=== PATIENT | female | born 1960 | race Caucasian/White ===

== ENCOUNTER 2019-09-13 11:34 | Day surgery (SDC) | payer OTHER ==
[~2019-09-13] VITALS: Ht 167.6 cm; Wt 54.6 kg
--- NOTE | 2019-09-13 12:23 | NUR ---
History, Chart, Medications and Allergies reviewed before start of procedure. Patient confirms NPO status and agrees with scheduled EGD procedure. Patient States Post-Procedure ride home has been arranged with her friend, Andrew.
[2019-09-13] MEDS ORDERED: ALBU3IS INH (12:28)
[2019-09-13] MEDS ORDERED: TIOT18 INH (12:29)
[2019-09-13] MEDS ORDERED: AMLODIPINE-BEN1 EAC1 PO (12:31)
[2019-09-13] MEDS ORDERED: DICLOFENAC SOD100 G1 TOP (12:32)
[2019-09-13] MEDS ORDERED: Nicotine Patch1 EAC5 TOP (12:33)
[2019-09-13] MEDS ORDERED: Flexeril5 MG PO (12:34)
[2019-09-13] MEDS ORDERED: OMEP20ER PO (12:35)
--- NOTE | 2019-09-13 13:18 | NUR ---
09/13/19 1318 Eddie Coleman History, Chart, Medications and Allergies reviewed before start of procedure.MONITOR INTACT WITH CONTINUOUS PULSE OXIMETRY AND INTERMITTENT BP.3-LEAD EKG REVIEWED WITH PHYSICIAN PRIOR TO START OF PROCEDURE.O2 VIA N/C INTACT THROUGHOUT SEDATION/PROCEDURE. PATIENT DETERMINED TO BE ASA APPROPRIATE FOR PROPOFOL SEDATION PRIOR TO START OF PROCEDURE BY DR. ACEVES.
--- NOTE | 2019-09-13 13:48 | NUR ---
RECIEVED REPORT FROM YEISON REYES RN VSS PATIENT AWAKE.
--- NOTE | 2019-09-13 14:44 | NUR ---
PATIENT ASKING FOR LAB DRAW ORDER RECIEVED FROM DOCTOR TO DRAW A HEPATITIS PANEL ORDER PLACED AND DRAWN FROM IV, PLACED IN TUBES AND SENT TO LAB.
--- NOTE | 2019-09-13 14:46 | NUR ---
Discharge instructions reviewed with patient. Patient verbalizes understanding. Copy given to patient to take home. Patient States Post-Procedure ride home has been arranged. Discharged via wheelchair to private car for ride home.
[2019-09-15 01:06] LABS: HBSAG SCREEN Negative (Negative); HEP A AB, IGM Negative (Negative); HEP B CORE AB, IGM Negative (Negative); HEP C VIRUS AB >11.0 (0.0-0.9)
== END 2019-09-13 23:02 | disposition home or self-care (01) ==
LOC: ORSCMMR 11:34 → ORD 13:00 → ORSCMMR 13:00
PROVIDERS: Student in an Organized Health Care Education/Training Program
PROC: 0DB98ZX Excision of Duodenum, Via Natural or Artificial Opening Endoscopic, Diagnostic (ICD-10-PCS; principal; 2019-09-13 13:00)
PROC: 0DB48ZX Excision of Esophagogastric Junction, Via Natural or Artificial Opening Endoscopic, Diagnostic (ICD-10-PCS; principal; 2019-09-13 13:00)
PROC: 0DB58ZX Excision of Esophagus, Via Natural or Artificial Opening Endoscopic, Diagnostic (ICD-10-PCS; principal; 2019-09-13 13:00)
PROC: 0DB78ZX Excision of Stomach, Pylorus, Via Natural or Artificial Opening Endoscopic, Diagnostic (ICD-10-PCS; principal; 2019-09-13 13:00)
DX: K21.0 Gastro-esophageal reflux disease with esophagitis (principal); R10.13 Epigastric pain; K29.70 Gastritis, unspecified, without bleeding; K22.2 Esophageal obstruction; K26.9 Duodenal ulcer, unspecified as acute or chronic, without hemorrhage or perforation; K44.9 Diaphragmatic hernia without obstruction or gangrene; I10 Essential (primary) hypertension; B19.20 Unspecified viral hepatitis C without hepatic coma; F17.210 Nicotine dependence, cigarettes, uncomplicated; Z79.899 Other long term (current) drug therapy
CPT/HCPCS: 80074; 88305; 88342; J2001; J2250; J2704; J7120

== ENCOUNTER → 2019-11-05 | Outpatient (CLI) | payer OTHER ==
[~2019-11-05] MED LIST: ALBU3IS INH; AMLODIPINE-BEN1 EAC1 PO; DICLOFENAC SOD100 G1 TOP; Flexeril5 MG PO; Nicotine Patch1 EAC5 TOP; OMEP20ER PO; TIOT18 INH
[2019-11-06 14:23] LABS: Stool Occult Bld Immuno 1 Negative (NEGATIVE)
== END | disposition home or self-care (01) ==
LOC: LAB 11:00 → LAB SHORT 11:00
PROVIDERS: Nurse Practitioner Family
DX: Z12.11 Encounter for screening for malignant neoplasm of colon (principal)
CPT/HCPCS: G0328

== ENCOUNTER 2024-01-14 09:27 | Inpatient (IN) | payer OTHER ==
[~2024-01-14] VITALS: Ht 160 cm; Wt 75.0 kg
[2024-01-14] MEDS ORDERED: Ipratropium/Albuterol SulF 2.5-0.5MG/3 ML Amp INH SCH (10:15)
[2024-01-14 10:16] LABS: BASOPHILS ABSOLUTE AUTO 0.03 K/mm3 (0.00-0.23); BASOPHILS PERCENT AUTO 0 % (0-2); EOSINOPHILS ABSOLUTE AUTO 0.03 K/mm3 (0.00-0.68); EOSINOPHILS PERCENT AUTO 0 % (0-6); Hematocrit 38.2 % (33.0-51.0); Hemoglobin 12.6 g/dL (11.5-16.0); IMMATURE GRAN ABSOLUTE AUTO 0.02 K/mm3 (0.00-0.10); IMMATURE GRAN PERCENT AUTO 0 % (0-1); LYMPHOCYTES ABSOLUTE AUTO 1.61 K/mm3 (0.84-5.20); LYMPHOCYTES PERCENT AUTO 17 % (21-46); MONOCYTES ABSOLUTE AUTO 0.49 K/mm3 (0.16-1.47); MONOCYTES PERCENT AUTO 5 % (4-13); Mean Corpuscular HGB 33.8 pg (26.0-34.0); Mean Corpuscular Volume 102 fL (80-100); Mean Platelet Volume 9.1 fL (9.1-12.4); NEUTROPHILS ABSOLUTE AUTO 7.16 K/mm3 (1.96-9.15); NEUTROPHILS PERCENT AUTO 77 % (41-73); Platelet Count 243 K/mm3 (150-400); RDW Standard Deviation 54.6 fL (35.1-46.3); Red Blood Cell Count 3.73 M/mm3 (3.80-5.20); White Blood Cell Count 9.34 K/mm3 (4.00-11.30)
[2024-01-14] MEDS ORDERED: MethylPREDNISolone Sod Succ 125 MG Vial IV ONE (10:20)
[2024-01-14] MEDS ORDERED: Lisinopril 20 MG Tab PO ONE (10:20)
[2024-01-14] MEDS ORDERED: Ketorolac Tromethamine 15mg Vial IV ONE (10:20)
[2024-01-14 10:36] LABS: Albumin, Blood 2.8 g/dL (3.4-5.0); Albumin/Globulin Ratio 0.6 (0.8-1.8); Bilirubin, Total 0.6 mg/dL (0.1-1.0); Bun/Creatinine Ratio 12.3 (12.0-20.0); Calcium, Blood 8.7 mg/dL (8.5-10.1); Creatinine, Blood 1.62 mg/dL (0.40-1.00); Globulin, Blood 4.9 g/dL (2.2-4.0); Potassium, Blood 3.5 mmol/L (3.5-5.5); Total Protein, Blood 7.7 g/dL (6.4-8.2)
[2024-01-14] MEDS ORDERED: ANORO ELLIPTA1 EAC1 INH ×2 (10:39)
[2024-01-14] MEDS ORDERED: Labetalol HCL 5 MG/ML 4ML Injection (Single Dose) IV ONE (11:25)
[2024-01-14] MEDS ORDERED: Nitroglycerin 0.4 MG SUBL SL ONE (11:25)
[2024-01-14] MEDS ORDERED: Furosemide 10 MG/ML 4ML Vial IV ONE (11:30)
[2024-01-14] MEDS ORDERED: Morphine Sulfate 4 MG/1 ML Injection IV ONE (12:25)
[2024-01-14] MEDS ORDERED: NS 500 ML IV SCH (12:40)
[2024-01-14] MEDS ORDERED: Potassium Chloride 20 MEQ TabCR PO ONE (13:00)
[2024-01-14] MEDS ORDERED: Albuterol 2.5 MG/3 ML VIAL INH PRN (14:10)
[2024-01-14] MEDS ORDERED: Acetaminophen 325 MG TABLET PO PRN (14:10)
[2024-01-14] MEDS ORDERED: Morphine Sulfate 4 MG/1 ML Injection IV PRN (14:10)
[2024-01-14] MEDS ORDERED: ChlordiazePOXIDE 25 MG Cap PO PRN ×2 (14:15→16:40)
[2024-01-14] MEDS ORDERED: HydrALAZINE HCl 20 MG / ML 1ML Vial IV PRN (14:20)
[2024-01-14] MEDS ORDERED: Nitroglycerin 0.4 MG SUBL SL PRN (14:20)
[2024-01-14] MEDS ORDERED: CefTRIAXone Sodium 1,000 MG in NS 100 ML IV SCH (14:30)
[2024-01-14] MEDS ORDERED: Azithromycin 250 MG Tab PO SCH (15:00)
[2024-01-14] MEDS ORDERED: Thiamine HCl 100 MG Tab PO SCH (15:00)
[2024-01-14] MEDS ORDERED: Folic Acid 1 MG TAB PO SCH (15:00)
[2024-01-14] MEDS ORDERED: Enoxaparin 80 MG/0.8 ML SYR SC SCH (16:00)
[2024-01-14 16:01] VITALS: BP 164/140
[2024-01-14 16:13] VITALS: BP 198/138
--- NOTE | 2024-01-14 16:20 | NUR ---
ARRIVAL TO PCU patient arrived to pcu at 1535. transferd to pcu bed with minimal assistance walking. blood pressure elevated and medicated per emar. patient educated on possiblities of getting a headache as blood pressure lowers. patient verbalized understanding and of minimal headache currently rated at 2. tele sinus rhythm 92. spo2 >90% on room air. patient is alert and oriented x4. perrla. patient is a daily drinker and drinks rum, about 4 shots in soda daily. last drink yesterday. patient report smoking a quater of a pack daily, called md campa for a nicotine patch. patient reports having schizopernia, depression, hallucinations seeing faces and sees people and talks to them. patient states "they come to me. i dont seek them out". this rn educated on alcohol withdrawal and what that looks like and feels like. patient verbalized understanding and said she would be able to tell the differences from her normal halluncinations and not normal halluncinations. ciwa is 3 currently. patient has flight of ideas. patient has scattered bruising and scratches throughout body. patieint had dentures but only uppers with her. patient has glasses with her. see admit shift assessment for further details. patient home med rec is complete. patient states she has other prescribed meds but does not take them or know what they are. only takes her inhalers. echo at bedside currently. plan of care is up to date
[2024-01-14 16:30] VITALS: BP 169/101
[2024-01-14] MEDS ORDERED: Nicotine 14 MG PATCH TOP SCH (16:35)
[2024-01-14] MEDS ORDERED: LORazepam 2 MG/ML 1ML Injection IV PRN ×2 (16:40)
[2024-01-14] MEDS ORDERED: Enoxaparin 40 MG/0.4 ML SYR SC SCH (17:00)
[2024-01-14] MEDS ORDERED: Bumetanide 0.25 MG/ML 10ML Vial IV ONE ×2 (17:25→17:35)
--- NOTE | 2024-01-14 18:21 | NUR ---
shift summary no acute changes since previous note. blood pressure remains hypertensive, md campa aware of this and of blood pressure after PRN medication given. plan remains up to date.
[2024-01-14 19:46] VITALS: BP 177/107
[2024-01-14 20:37] VITALS: BP 164/112
[2024-01-14] MEDS ORDERED: Sennosides 8.6 MG Tab PO SCH (21:00)
[2024-01-14] MEDS ORDERED: Lactobacil 2-S.Thermo-Bifido 1 1 Cap PO SCH (21:00)
[2024-01-14] MEDS ORDERED: Metoprolol Tartrate 25 MG Tab PO SCH (21:00)
[2024-01-14] MEDS ORDERED: Docusate Sodium 100 MG Cap PO SCH (21:00)
[2024-01-14 23:34] VITALS: BP 132/100
[2024-01-15 02:14] VITALS: BP 150/111
[2024-01-15 03:49] VITALS: BP 150/109
--- NOTE | 2024-01-15 04:52 | NUR ---
SHIFT SUMMARY THIS RN ASSUMED CARE OF PATIENT AT 1900. NO ACUTE CHANGES OVERNIGHT. PT A&O X4. ABLE TO MAKE NEEDS KNOWN. BASELINE SCHIZOPHRENIA WITH HALLUCINATION. CIWA PROTOCOL IN PLACE. CIWA 4-11 DURING THIS SHIFT. MEDICATED WITH PO LIBRIUM X2. PT WITH REPORTS OF SHOULDER PAIN AND COUGHING DURING THIS SHIFT. MEDICATED PER EMAR FOR PAIN. UP TO BSC WITH SBA. BP STABLE. SR WITH HR 80'S. ON 2L VIA NC WITH SPO2 >92%. DYSPNEA WITH EXERTION. BED IN LOWEST POSITION AND CALL LIGHT WITHIN REACH. THIS RN WILL REPORT TO ONCOMING DAYSHIFT RN.
[2024-01-15 05:25] LABS: BASOPHILS PERCENT AUTO 0 % (0-2); EOSINOPHILS PERCENT AUTO 0 % (0-6); Hematocrit 38.5 % (33.0-51.0); Hemoglobin 12.6 g/dL (11.5-16.0); IMMATURE GRAN ABSOLUTE AUTO 0.03 K/mm3 (0.00-0.10); IMMATURE GRAN PERCENT AUTO 0 % (0-1); LYMPHOCYTES ABSOLUTE AUTO 1.04 K/mm3 (0.84-5.20); LYMPHOCYTES PERCENT AUTO 15 % (21-46); MONOCYTES ABSOLUTE AUTO 0.21 K/mm3 (0.16-1.47); MONOCYTES PERCENT AUTO 3 % (4-13); Mean Corpuscular HGB 33.6 pg (26.0-34.0); Mean Corpuscular HGB Conc 32.7 g/dL (31.5-36.5); Mean Corpuscular Volume 103 fL (80-100); Mean Platelet Volume 9.7 fL (9.1-12.4); NEUTROPHILS ABSOLUTE AUTO 5.51 K/mm3 (1.96-9.15); NEUTROPHILS PERCENT AUTO 81 % (41-73); NRBC ABSOLUTE 0.05 K/mm3 (0.00-0.02); NRBC Auto 0.7 /100 WBC (0.0-0.2); Platelet Count 241 K/mm3 (150-400); RDW Coefficient Variation 15.4 % (11.7-14.2); RDW Standard Deviation 56.1 fL (35.1-46.3); Red Blood Cell Count 3.75 M/mm3 (3.80-5.20); White Blood Cell Count 6.79 K/mm3 (4.00-11.30)
[2024-01-15 05:50] LABS: Calcium, Blood 8.7 mg/dL (8.5-10.1); Creatinine, Blood 1.94 mg/dL (0.40-1.00); Potassium, Blood 4.2 mmol/L (3.5-5.5)
[2024-01-15 07:47] VITALS: BP 145/113
[2024-01-15] MEDS ORDERED: Mometasone/Formoterol MDI 200/5 mcg 13 GM INH SCH (08:10)
[2024-01-15] MEDS ORDERED: HydrALAZINE HCl 25 MG Tab PO SCH (09:00)
[2024-01-15] MEDS ORDERED: Isosorbide Mononitrate 30 MG TABCR PO SCH (09:00)
[2024-01-15] MEDS ORDERED: MethylPREDNISolone Sod Succ 125 MG Vial IV SCH (09:00)
[2024-01-15] MEDS ORDERED: Furosemide 10 MG/ML 4ML Vial IV SCH (09:00)
[2024-01-15] MEDS ORDERED: Enoxaparin 30 MG/0.3 ML SYR SC SCH (09:00)
[2024-01-15] MEDS ORDERED: Furosemide 20 MG Tab PO SCH (09:00)
[2024-01-15] MEDS ORDERED: Enoxaparin 40 MG/0.4 ML SYR SC SCH (09:00)
[2024-01-15] MEDS ORDERED: TraMADol HCl 50 MG Tab PO PRN (09:50)
[2024-01-15] MEDS ORDERED: HydrOXYzine Pamoate 25 MG Cap PO PRN (09:50)
--- NOTE | 2024-01-15 09:51 | NUR ---
am note this rn assumed care at 0700. vital signs stable. tele sinus rhythm. spo2 >90% on room air. patient is alert and oriented x4. neuro is intact. patient baseline has hallunciations that come and goes. ciwa is 3 this morning. denies pain or chest pain/pressure. patient still becomes short of breath with exertion, but states it is improving and " can breath better". patient has breathing treatments from respiratory therapist. lung sounds bilateral dim coase expriatory wheezes. see shift assessment for further detials. md campa in to see patient this am. discussed plan of care. patient plan of care remains up to date.
[2024-01-15 11:18] VITALS: BP 132/102
[2024-01-15 15:37] VITALS: BP 130/88
--- NOTE | 2024-01-15 17:31 | NUR ---
SHIFT SUMMARY patient neuro remains unchaged. vitals stable. blood pressure improving. ciwa 8 and medicated. no acute changes this shift. plan remains up to date.
[2024-01-15 19:34] VITALS: BP 142/104
[2024-01-16] VITALS (7 sets, daily range): BP systolic 121–152; BP diastolic 86–111
--- NOTE | 2024-01-16 04:48 | NUR ---
SHIFT SUMMARY THIS RN ASSUMED CARE OF PATIENT AT 1900. NO ACUTE EVENTS OVERNIGHT. PT A&O X4. ABLE TO MAKE NEEDS KNOWN. CIWA NEGATIVE DURING THIS SHIFT. PT REPORTED BEING TIRED AND WAS UNABLE TO SLEEP MOST OF THIS SHIFT. VSS. AMBULATING TO BSC WITH SBA. BED IN LOWEST POSITION AND CALL LIGHT WITHIN REACH. THIS RN WILL REPORT TO [facility] RN.
--- NOTE | 2024-01-16 09:37 | NUR ---
AM NOTE: THIS RN ASSUMED CARE OF PT AT APPROX 0700. PT ALERT, ORIENTED X4. REPORTING AN INCREASE IN HALLUCINATIONS THIS AM; PT STATES "I ALWAYS SEE PEOPLE BUT THEY'RE TALKING TO ME THIS MORNING WHICH NEVER HAPPENS." CIWA 9, MEDICATED PER ORDERS. VSS. HR 60-80'S, SINUS ON TELE. BP STABLE, DENIES CHEST PAIN/PRESSURE. SPO2 >90% ON RA-2L NC. AFEBRILE. UP TO BSC THIS AM W/ 1P ASSIST. PT REFUSED BREAKFAST, REQUESTED TO BE LEFT ALONE TO REST. SLEEPING AT THIS TIME. NO OTHER NEEDS, CALL LIGHT IN REACH.
--- NOTE | 2024-01-16 15:41 | NUR ---
END OF SHIFT NOTE: PT LETHARGIC THIS AFTERNOON. CIWA UP TO 13, MEDICATED PER EMAR. SEE ALCOHOL WITHDRAWAL ASSESSMENTS. VSS. HR 60-70'S, SINUS ON TELE. SBP 120-140'S, DENIES CHEST PAIN/PRESSURE. SPO2 >90% ON 2L WHILE LETHARGIC. PUREWICK IN PLACE PER PT REQUEST. REPOSITIONING INDEPENDENTLY IN BED. MINIMAL PO INTAKE T/O SHIFT. NO OTHER NEEDS AT THIS TIME. CALL LIGHT IN REACH. REPORT TO FORREST RN TO ASSUME CARE FOR REMAINDER OF DAY SHIFT.
--- NOTE | 2024-01-16 16:10 | NUR ---
THIS RN TO ASSUME CARE AT 1600
[2024-01-17 04:06] VITALS: BP 140/105
--- NOTE | 2024-01-17 04:41 | NUR ---
SHIFT SUMMARY THIS RN ASSUMED CARE OF PATIENT AT 1900. NO ACUTE EVENTS OVERNIGHT. PT A&O X4. ABLE TO MAKE NEEDS KNOWN. CIWA 8-10, MEDICATED PER EMAR. VSS. ON 2L FOR NOC. 1-2P SBA TO BSC D/T TREMORS. PT WITH BASELINE VISUAL HALLUCINATIONS, DENIES WORSENING WITH WITHDRAWAL. COOPERATIVE WITH CARE. BED IN LOWEST POSITION, BED ALARM ON, CALL LIGHT WITHIN REACH. THIS RN WILL REPORT TO ONCOMING DAYSHIFT RN.
[2024-01-17 04:57] LABS: BASOPHILS ABSOLUTE AUTO 0.01 K/mm3 (0.00-0.23); BASOPHILS PERCENT AUTO 0 % (0-2); EOSINOPHILS PERCENT AUTO 0 % (0-6); Hematocrit 34.7 % (33.0-51.0); Hemoglobin 11.3 g/dL (11.5-16.0); IMMATURE GRAN ABSOLUTE AUTO 0.06 K/mm3 (0.00-0.10); IMMATURE GRAN PERCENT AUTO 1 % (0-1); LYMPHOCYTES ABSOLUTE AUTO 0.76 K/mm3 (0.84-5.20); LYMPHOCYTES PERCENT AUTO 9 % (21-46); MONOCYTES ABSOLUTE AUTO 0.23 K/mm3 (0.16-1.47); MONOCYTES PERCENT AUTO 3 % (4-13); Mean Corpuscular HGB 33.8 pg (26.0-34.0); Mean Corpuscular HGB Conc 32.6 g/dL (31.5-36.5); Mean Corpuscular Volume 104 fL (80-100); Mean Platelet Volume 9.4 fL (9.1-12.4); NEUTROPHILS ABSOLUTE AUTO 6.99 K/mm3 (1.96-9.15); NEUTROPHILS PERCENT AUTO 87 % (41-73); NRBC ABSOLUTE 0.04 K/mm3 (0.00-0.02); NRBC Auto 0.5 /100 WBC (0.0-0.2); Platelet Count 274 K/mm3 (150-400); RDW Coefficient Variation 15.4 % (11.7-14.2); RDW Standard Deviation 56.7 fL (35.1-46.3); Red Blood Cell Count 3.34 M/mm3 (3.80-5.20); White Blood Cell Count 8.05 K/mm3 (4.00-11.30)
[2024-01-17 05:12] LABS: Bun/Creatinine Ratio 32.4 (12.0-20.0); Calcium, Blood 8.3 mg/dL (8.5-10.1); Creatinine, Blood 2.22 mg/dL (0.40-1.00); Potassium, Blood 4.2 mmol/L (3.5-5.5)
[2024-01-17 07:14] VITALS: BP 151/110
[2024-01-17] MEDS ORDERED: NS 1,000 ML IV SCH (11:40)
[2024-01-17] MEDS ORDERED: ChlordiazePOXIDE 25 MG Cap PO PRN (11:40)
--- NOTE | 2024-01-17 12:37 | NUR ---
Assumed care to break primary RN for 30 minute lunch. No adverse events during lunch. Primary RN reassumed care.
[2024-01-17] MEDS ORDERED: HydrALAZINE HCl 50 MG Tab PO SCH (14:00)
[2024-01-17 14:48] VITALS: BP 131/96
--- NOTE | 2024-01-17 17:30 | NUR ---
SHIFT SUMMARY; ASSUMED CARE AT 0700. A/A/OX4. REPORTS HEARING VOICES AT TIMES BUT STATES HAS BEEN ABLE TO HEAR FROM THE SINCE 1 YEARS OLD. SLIGHT TREMOR NOTED LATER IN SHIFT, CIWA'S 0-4. REPOSITIONS SELF IN BED, SBA TO COMMODE. 2L O2 VIA NC. STATUS CHANGED TO MEDICAL TODAY DURING SHIFT. VSS. WILL CONTINUE TO MONITOR AND TREAT UNTIL CHANGE OF SHIFT.
[2024-01-17 19:50] VITALS: BP 149/92
[2024-01-17] MEDS ORDERED: OLANZapine 5 MG Tab PO SCH (21:00)
[2024-01-17] MEDS ORDERED: Metoprolol Tartrate 50 MG Tab PO SCH (21:00)
--- NOTE | 2024-01-18 01:25 | NUR ---
REPORT RECIEVED FROM SASHA (BUSINESS DATABASE ANALYST) AND AWAITING PT T/F TO ROOM 328.
--- NOTE | 2024-01-18 01:50 | NUR ---
PT T/F TO ROOM 328 AT 0140. THIS RN AGREES TO PCU INITIAL SHIFT ASSESSMENT. PT A/OX4 AND THERE'S NO EVIDENCE HALLUCINATIONS AT PRESENT. SHE WAS ORIENTED TO NEW ROOM AND CALL SYSTEM. PT DENIES PAIN AND NEEDS AT PRESENT. WCTM.
[2024-01-18 01:55] VITALS: BP 131/97
[2024-01-18 05:11] LABS: BASOPHILS PERCENT AUTO 0 % (0-2); EOSINOPHILS ABSOLUTE AUTO 0.03 K/mm3 (0.00-0.68); EOSINOPHILS PERCENT AUTO 0 % (0-6); Hematocrit 35.4 % (33.0-51.0); Hemoglobin 11.4 g/dL (11.5-16.0); IMMATURE GRAN ABSOLUTE AUTO 0.05 K/mm3 (0.00-0.10); IMMATURE GRAN PERCENT AUTO 1 % (0-1); LYMPHOCYTES ABSOLUTE AUTO 2.17 K/mm3 (0.84-5.20); LYMPHOCYTES PERCENT AUTO 26 % (21-46); MONOCYTES PERCENT AUTO 7 % (4-13); Mean Corpuscular HGB Conc 32.2 g/dL (31.5-36.5); Mean Corpuscular Volume 106 fL (80-100); Mean Platelet Volume 9.5 fL (9.1-12.4); NEUTROPHILS ABSOLUTE AUTO 5.47 K/mm3 (1.96-9.15); NEUTROPHILS PERCENT AUTO 66 % (41-73); NRBC ABSOLUTE 0.03 K/mm3 (0.00-0.02); NRBC Auto 0.4 /100 WBC (0.0-0.2); Platelet Count 246 K/mm3 (150-400); RDW Coefficient Variation 15.7 % (11.7-14.2); RDW Standard Deviation 58.1 fL (35.1-46.3); Red Blood Cell Count 3.35 M/mm3 (3.80-5.20); White Blood Cell Count 8.32 K/mm3 (4.00-11.30)
--- NOTE | 2024-01-18 05:48 | NUR ---
ASSUMED CARE OF PT WHILE PRIMARY RN ON BREAK. CALL LIGHT WITHIN REACH.
--- NOTE | 2024-01-18 06:18 | NUR ---
SUMMARY: PT A/OX4, CALLS APPROPRIATELY TO SPECIFY NEEDS AND IS PLEASANT AND COOPERATIVE W/CARE. SHE ENDORSES SCHIZOPHRENIA RELATED HALLUCINATIONS AT BASELINE BUT NONE SINCE T/F TO FLOOR. CIWA WAS 0 T/O NOCTE. BED ALARM IS ON FOR POSSIBLE IMPULSIVITY AND SHE'S SBA TO [facility] [place] W/SLIGHTLY UNSTEADY GAIT. SPO2 IS WNL ON 2L O2 VIA NC AND NO S/S RESP DISTRESS OBSERVED. IV ABX BEING RECEIVED PER EMAR FOR PNM. KPAD REMAINS IN PLACE TO SHOULDER AND BACK FOR CHRONIC PAIN AND ULTRAM WAS PROVIDED BY YARD JACKER FOR GOOD AFFECT. NO ACUTE CHANGES, VSS/AFEBRILE. WCTM AND REPORT TO DAY RN.
[2024-01-18 06:21] LABS: Calcium, Blood 8.2 mg/dL (8.5-10.1); Creatinine, Blood 2.08 mg/dL (0.40-1.00); Potassium, Blood 3.9 mmol/L (3.5-5.5)
[2024-01-18 07:34] VITALS: BP 140/109
[2024-01-18] MEDS ORDERED: OLANZapine 5 MG Tab PO SCH (09:00)
[2024-01-18] MEDS ORDERED: NS 1,000 ML IV SCH (10:25)
[2024-01-18] MEDS ORDERED: Lidocaine 4% 1 Patch TOP SCH (10:30)
[2024-01-18 14:08] VITALS: BP 126/92
--- NOTE | 2024-01-18 17:03 | NUR ---
SHIFT SUMMARY- PT HAS BEEN LETHARGIC AND SLEEPING MOST OF THE SHIFT. SHE DID PIVOT TRANSFER TO THE COMMODE SEVERAL TIMES FOR URINE AND ONCE FOR A LARGE BM. PT NEEDED ASSISTANCE WITH [facility] AFTER THE BM, BUT WITH THE URINE SHE WAS ABLE TO BE INDEPENDENT THERE. IVF REDUCED TO 50ML/HR. PT IN BED CALL LIGHT IN REACH NO S&S OF DISTRESS NOTED. SHE IS CURRENTLY SLEEPING AGAIN.
[2024-01-18 19:45] VITALS: BP 146/93
[2024-01-19 03:24] VITALS: BP 132/99
--- NOTE | 2024-01-19 04:48 | NUR ---
SHIFT SUMMARY: Pt is admitted for right lower PNA and is a DNR. is alert and able to make most needs known. ADLs have been 1p to BSC. pain has been manageage with PRN pain management. Power glide to left upper arm in patent with dressing that is CDI. NS is flowing at 50ml. Stated that she had pain at one point in the pelvic area deep inside. This LN was not able to find anything that stood out in an assessment. She was laying on her left side when the pain started and was subsided when laid on her back so she could be assessed. Had no other complaints of pain in that area but the one time.
[2024-01-19 07:21] VITALS: BP 151/103
[2024-01-19 09:15] LABS: Bun/Creatinine Ratio 31.2 (12.0-20.0); Calcium, Blood 7.8 mg/dL (8.5-10.1); Creatinine, Blood 2.05 mg/dL (0.40-1.00); Potassium, Blood 4.3 mmol/L (3.5-5.5)
[2024-01-19] MEDS ORDERED: Acetaminophen325 M1 PO ×2 (12:24)
[2024-01-19] MEDS ORDERED: HYDRA50 PO ×2 (12:25)
[2024-01-19] MEDS ORDERED: FOLI1 PO ×2 (12:25)
[2024-01-19] MEDS ORDERED: DOCU100 PO ×2 (12:25)
[2024-01-19] MEDS ORDERED: Isosorbide Mono30 MG PO ×2 (12:26)
[2024-01-19] MEDS ORDERED: HYDPAM25 PO ×2 (12:26)
[2024-01-19] MEDS ORDERED: Nicoderm Cq1 EAC1 TOP ×2 (12:26)
[2024-01-19] MEDS ORDERED: METO50 PO ×2 (12:26)
[2024-01-19] MEDS ORDERED: VISBIOME 112.51 EACH PO ×2 (12:27)
[2024-01-19] MEDS ORDERED: DOXY100 PO ×2 (12:27)
[2024-01-19] MEDS ORDERED: TRAM50 PO ×2 (12:27)
[2024-01-19] MEDS ORDERED: SPIR25 PO ×2 (12:28)
[2024-01-19] MEDS ORDERED: FURO40 PO ×2 (12:28)
[2024-01-19] MEDS ORDERED: JARDIANCE10 MG PO ×2 (12:35)
--- NOTE | 2024-01-19 14:09 | NUR ---
DISCHARGE PT DISCHARGED AFTER NEW MEDS, FOLLOW UP APPOINTMENTS, AND OTHER INSTRUCTIONS WERE GONE OVER. PT STATES SHE HAS NO FURTHER QUESTIONS AT THIS TIME. BELONGINGS PACKED INTO BACKS AND PT FRIEND PICKED THEM UP. PT THEN WHEELED DOWN TO [facility] FOR TAXI PICKUP.
--- NOTE | 2024-01-19 21:17 | NUR ---
PATIENT CALLED ASKING TO BE VERBALLY GIVEN INFORMATION ON HER PERSCRIPTIONS THAT WERE FAXED TO PHARMACY. VERIFIED IDENTITY, AND READ THEM TO HER, ANSWERED QUESTIONS ABOUT HER MED REC. GAVE INFORMATION TO MY CHARGE NURSE
--- NOTE | 2024-01-19 21:17 | NUR ---
REVIEWED PT'S INFORMATION R/T QUESTIONS ABOUT DISCH MEDS, PT CALLED WITH QUESTIONS
== END 2024-01-19 13:58 | disposition home health service (06) | DRG 871 ==
LOC: ER 09:27 → PCU 14:06 → MEDS 01-18 01:21
PROVIDERS: Emergency Medicine; ADMIT Internal Medicine
DX: A41.9 Sepsis, unspecified organism (principal); I50.43 Acute on chronic combined systolic (congestive) and diastolic (congestive) heart failure; J18.9 Pneumonia, unspecified organism; N17.9 Acute kidney failure, unspecified; F10.239 Alcohol dependence with withdrawal, unspecified; J44.1 Chronic obstructive pulmonary disease with (acute) exacerbation; Z66 Do not resuscitate; I13.0 Hypertensive heart and chronic kidney disease with heart failure and stage 1 through stage 4 chronic kidney disease, or unspecified chronic kidney disease; J44.0 Chronic obstructive pulmonary disease with (acute) lower respiratory infection; R79.1 Abnormal coagulation profile; F25.9 Schizoaffective disorder, unspecified; F17.210 Nicotine dependence, cigarettes, uncomplicated; I95.9 Hypotension, unspecified; N18.30 Chronic kidney disease, stage 3 unspecified; F32.A Depression, unspecified; I73.9 Peripheral vascular disease, unspecified; Z79.51 Long term (current) use of inhaled steroids; Z79.899 Other long term (current) drug therapy; Z98.890 Other specified postprocedural states; Z98.51 Tubal ligation status
CPT/HCPCS: 36415; 71046; 71260; 80048; 80053; 83880; 84484; 85025; 85379; 93005; 93010; 93306; 94640; 94664; 94760; 96374-59; 96375-59; 97162; 97530; 99285-25; A9270; C1751; J0360; J0696; J1650; J1885; J1940; J2060; J2270; J2919; J7030; J7040; Q0177; Q9967

== ENCOUNTER 2024-01-21 20:59 | Emergency (ER) | payer OTHER ==
[~2024-01-21] VITALS: Ht 167.6 cm; Wt 73.0 kg
[~2024-01-21 20:59] MED LIST changes: +ANORO ELLIPTA1 EAC1 INH; +Acetaminophen325 M1 PO; +DOCU100 PO; +DOXY100 PO; +FOLI1 PO; +FURO40 PO; +HYDPAM25 PO; +HYDRA50 PO; +Isosorbide Mono30 MG PO; +JARDIANCE10 MG PO; +METO50 PO; +Nicoderm Cq1 EAC1 TOP; +SPIR25 PO; +TRAM50 PO; +VISBIOME 112.51 EACH PO
[2024-01-21 22:12] LABS: BASOPHILS ABSOLUTE AUTO 0.02 K/mm3 (0.00-0.23); BASOPHILS PERCENT AUTO 0 % (0-2); EOSINOPHILS ABSOLUTE AUTO 0.21 K/mm3 (0.00-0.68); EOSINOPHILS PERCENT AUTO 2 % (0-6); Hematocrit 36.8 % (33.0-51.0); IMMATURE GRAN ABSOLUTE AUTO 0.06 K/mm3 (0.00-0.10); IMMATURE GRAN PERCENT AUTO 1 % (0-1); LYMPHOCYTES ABSOLUTE AUTO 2.05 K/mm3 (0.84-5.20); LYMPHOCYTES PERCENT AUTO 20 % (21-46); MONOCYTES ABSOLUTE AUTO 0.64 K/mm3 (0.16-1.47); MONOCYTES PERCENT AUTO 6 % (4-13); Mean Corpuscular HGB Conc 32.6 g/dL (31.5-36.5); Mean Corpuscular Volume 104 fL (80-100); Mean Platelet Volume 9.1 fL (9.1-12.4); NEUTROPHILS ABSOLUTE AUTO 7.38 K/mm3 (1.96-9.15); NEUTROPHILS PERCENT AUTO 71 % (41-73); Platelet Count 259 K/mm3 (150-400); RDW Coefficient Variation 15.9 % (11.7-14.2); RDW Standard Deviation 59.5 fL (35.1-46.3); Red Blood Cell Count 3.53 M/mm3 (3.80-5.20); White Blood Cell Count 10.36 K/mm3 (4.00-11.30)
[2024-01-21 22:31] LABS: Alanine Aminotransfer (ALT/SGP 18 U/L (12-78); Albumin, Blood 2.8 g/dL (3.4-5.0); Albumin/Globulin Ratio 0.7 (0.8-1.8); Alk Phos 67 U/L (50-136); Anion Gap 10 mmol/L (3-11); Aspartate Aminotrans (AST/SGOT 21 U/L (12-37); Bilirubin, Total 0.3 mg/dL (0.1-1.0); Blood Urea Nitrogen 34 mg/dL (8-24); Bun/Creatinine Ratio 21.7 (12.0-20.0); CO2, Blood 20 mmol/L (21-32); Calcium, Blood 8.4 mg/dL (8.5-10.1); Chloride, Blood 115 mmol/L (98-108); Creatinine, Blood 1.57 mg/dL (0.40-1.00); Ethanol (Alcohol), Blood, Med <3 mg/dL; Glomerular Filtration Rate 37 (60-); Glucose, Blood 120 mg/dL (70-99); Magnesium, Blood 2.1 mg/dL (1.6-2.4); Potassium, Blood 4.3 mmol/L (3.5-5.5); Sodium, Blood 141 mmol/L (136-145); Total Protein, Blood 6.8 g/dL (6.4-8.2)
[2024-01-21] MEDS ORDERED: Furosemide 10 MG/ML 4ML Vial IV ONE (23:45)
[2024-01-22] VITALS: BP 159/99
== END 2024-01-22 00:33 | disposition home or self-care (01) ==
LOC: ER 20:59
PROVIDERS: Emergency Medicine
DX: I13.0 Hypertensive heart and chronic kidney disease with heart failure and stage 1 through stage 4 chronic kidney disease, or unspecified chronic kidney disease (principal); I50.9 Heart failure, unspecified; N18.9 Chronic kidney disease, unspecified; Z79.899 Other long term (current) drug therapy; J44.9 Chronic obstructive pulmonary disease, unspecified; F17.200 Nicotine dependence, unspecified, uncomplicated
CPT/HCPCS: 71046; 80053; 83605; 83735; 83880; 84145; 84484; 85025; 93005; 93010; 96374; 99285-25; J1940

== ENCOUNTER → 2024-01-25 | Outpatient (CLI) | payer OTHER ==
[2024-01-25 19:19] LABS: Albumin, Blood 2.8 g/dL (3.4-5.0); Albumin/Globulin Ratio 0.6 (0.8-1.8); Bilirubin, Total 0.8 mg/dL (0.1-1.0); Bun/Creatinine Ratio 14.4 (12.0-20.0); Calcium, Blood 8.3 mg/dL (8.5-10.1); Creatinine, Blood 1.53 mg/dL (0.40-1.00); Globulin, Blood 4.5 g/dL (2.2-4.0); Potassium, Blood 4.4 mmol/L (3.5-5.5); Total Protein, Blood 7.3 g/dL (6.4-8.2)
== END ==
LOC: LAB 17:46 → LAB SHORT 17:46
PROVIDERS: Family Medicine
DX: I50.23 Acute on chronic systolic (congestive) heart failure (principal); J18.9 Pneumonia, unspecified organism
CPT/HCPCS: 80053

== ENCOUNTER 2024-02-22 12:22 | Emergency (ER) | payer OTHER ==
[~2024-02-22] VITALS: Ht 167.6 cm; Wt 65.3 kg
[2024-02-22 14:23] LABS: BASOPHILS ABSOLUTE AUTO 0.04 K/mm3 (0.00-0.23); BASOPHILS PERCENT AUTO 0 % (0-2); EOSINOPHILS ABSOLUTE AUTO 0.06 K/mm3 (0.00-0.68); EOSINOPHILS PERCENT AUTO 1 % (0-6); Hematocrit 48.2 % (33.0-51.0); Hemoglobin 15.8 g/dL (11.5-16.0); IMMATURE GRAN ABSOLUTE AUTO 0.03 K/mm3 (0.00-0.10); IMMATURE GRAN PERCENT AUTO 0 % (0-1); LYMPHOCYTES ABSOLUTE AUTO 1.58 K/mm3 (0.84-5.20); LYMPHOCYTES PERCENT AUTO 14 % (21-46); MONOCYTES ABSOLUTE AUTO 0.49 K/mm3 (0.16-1.47); MONOCYTES PERCENT AUTO 4 % (4-13); Mean Corpuscular HGB 32.1 pg (26.0-34.0); Mean Corpuscular HGB Conc 32.8 g/dL (31.5-36.5); Mean Corpuscular Volume 98 fL (80-100); Mean Platelet Volume 9.4 fL (9.1-12.4); NEUTROPHILS ABSOLUTE AUTO 9.23 K/mm3 (1.96-9.15); NEUTROPHILS PERCENT AUTO 81 % (41-73); Platelet Count 250 K/mm3 (150-400); RDW Standard Deviation 50.9 fL (35.1-46.3); Red Blood Cell Count 4.92 M/mm3 (3.80-5.20); White Blood Cell Count 11.43 K/mm3 (4.00-11.30)
[2024-02-22] MEDS ORDERED: Ketorolac Tromethamine 30mg Vial IV ONE (14:30)
[2024-02-22] MEDS ORDERED: Acetaminophen 325 MG TABLET PO ONE (14:30)
[2024-02-22] MEDS ORDERED: NS 1,000 ML IV SCH (14:30)
[2024-02-22 14:38] LABS: Albumin/Globulin Ratio 0.8 (0.8-1.8); Bilirubin, Total 0.4 mg/dL (0.1-1.0); Bun/Creatinine Ratio 16.9 (12.0-20.0); Calcium, Blood 9.7 mg/dL (8.5-10.1); Creatinine, Blood 2.31 mg/dL (0.40-1.00); Globulin, Blood 5.2 g/dL (2.2-4.0); Potassium, Blood 4.9 mmol/L (3.5-5.5); Total Protein, Blood 9.2 g/dL (6.4-8.2)
[2024-02-22 15:41] LABS: Influenza A, PCR NEGATIVE (NEGATIVE); Influenza B, PCR NEGATIVE (NEGATIVE); Resp Syncytial Virus, PCR NEGATIVE (NEGATIVE); SARS-Cov-2 (COVID-19) PCR, MMC NEGATIVE (NEGATIVE)
[2024-02-22] MEDS ORDERED: FentaNYL Citrate 50 MCG/ML 2 ML Injection IV ONE (16:25)
[2024-02-22] MEDS ORDERED: AMLO10 PO (17:07)
[2024-02-22] MEDS ORDERED: CILO100 PO (17:09)
[2024-02-22] MEDS ORDERED: DAPAGLIFLOZIN10 MG PO (17:09)
[2024-02-22] MEDS ORDERED: PROZAC2010 PO (17:10)
[2024-02-22] MEDS ORDERED: GABA400 PO (17:12)
[2024-02-22] MEDS ORDERED: K-Dur20 MEQ PO (17:17)
[2024-02-22] MEDS ORDERED: Crestor40 MG PO (17:18)
[2024-02-22] MEDS ORDERED: Prednisone10 MG PO (18:25)
[2024-02-22 18:30] VITALS: BP 147/94
== END 2024-02-22 18:42 | disposition home or self-care (01) ==
LOC: ER 12:22
PROVIDERS: Physician Assistant; Student in an Organized Health Care Education/Training Program
DX: M10.9 Gout, unspecified (principal); I95.9 Hypotension, unspecified; I12.9 Hypertensive chronic kidney disease with stage 1 through stage 4 chronic kidney disease, or unspecified chronic kidney disease; J44.9 Chronic obstructive pulmonary disease, unspecified; N18.9 Chronic kidney disease, unspecified; F17.210 Nicotine dependence, cigarettes, uncomplicated; Z79.899 Other long term (current) drug therapy; Z11.52 Encounter for screening for COVID-19
CPT/HCPCS: 0241U; 20605; 71046; 73110; 80053; 83735; 83880; 84484; 85025; 85651; 86140; 87205; 93005; 93010; 96361-59; 96374-59; 96375-59; 99285-25; A9270; J1885; J3010; J7030

== ENCOUNTER → 2024-03-28 | Outpatient (CLI) | payer OTHER ==
[~2024-03-28] MED LIST changes: +AMLO10 PO; +CILO100 PO; +Crestor40 MG PO; +DAPAGLIFLOZIN10 MG PO; +GABA400 PO; +K-Dur20 MEQ PO; +PROZAC2010 PO; +Prednisone10 MG PO
[2024-03-28 12:40] LABS: BASOPHILS ABSOLUTE AUTO 0.06 K/mm3 (0.00-0.23); BASOPHILS PERCENT AUTO 1 % (0-2); EOSINOPHILS ABSOLUTE AUTO 0.11 K/mm3 (0.00-0.68); EOSINOPHILS PERCENT AUTO 1 % (0-6); Hematocrit 39.6 % (33.0-51.0); IMMATURE GRAN ABSOLUTE AUTO 0.05 K/mm3 (0.00-0.10); IMMATURE GRAN PERCENT AUTO 1 % (0-1); LYMPHOCYTES ABSOLUTE AUTO 1.69 K/mm3 (0.84-5.20); LYMPHOCYTES PERCENT AUTO 17 % (21-46); MONOCYTES ABSOLUTE AUTO 0.83 K/mm3 (0.16-1.47); MONOCYTES PERCENT AUTO 8 % (4-13); Mean Corpuscular HGB 31.7 pg (26.0-34.0); Mean Corpuscular HGB Conc 32.8 g/dL (31.5-36.5); Mean Corpuscular Volume 97 fL (80-100); Mean Platelet Volume 8.8 fL (9.1-12.4); NEUTROPHILS PERCENT AUTO 73 % (41-73); Platelet Count 362 K/mm3 (150-400); RDW Coefficient Variation 14.6 % (11.7-14.2); White Blood Cell Count 10.24 K/mm3 (4.00-11.30)
[2024-03-28 12:55] LABS: Bun/Creatinine Ratio 12.6 (12.0-20.0); Calcium, Blood 8.9 mg/dL (8.5-10.1); Creatinine, Blood 2.31 mg/dL (0.40-1.00); Potassium, Blood 4.9 mmol/L (3.5-5.5)
== END | disposition home or self-care (01) ==
LOC: LAB 12:35 → LAB SHORT 12:35
PROVIDERS: Physician Assistant Medical
DX: M25.432 Effusion, left wrist (principal)
CPT/HCPCS: 80048; 84550; 85025

== ENCOUNTER 2024-04-12 06:35 | Day surgery (SDC) | payer OTHER ==
[~2024-04-12] VITALS: Ht 167.6 cm; Wt 61.7 kg
[2024-04-12] VITALS (11 sets, daily range): BP systolic 111–188; BP diastolic 82–148
[~2024-04-12 06:35] MED LIST changes: +Incruse Ellipta INH
[2024-04-12] MEDS ORDERED: LOTREL 10-40 M1 EACH PO (06:57)
[2024-04-12] MEDS ORDERED: ALBU90OI INH (06:58)
[2024-04-12] MEDS ORDERED: METO25ER PO (07:07)
[2024-04-12] MEDS ORDERED: ENTRESTO 24 MG1 EACH PO (07:07)
[2024-04-12] MEDS ORDERED: Albuterol 2.5 MG/3 ML VIAL ONE (07:22)
[2024-04-12] MEDS ORDERED: propofoL 50 ML IV ONE (07:24)
[2024-04-12] MEDS ORDERED: NS 1,000 ML IV ONE ×2 (07:26→07:37)
[2024-04-12] MEDS ORDERED: Nitroglycerin 2 MG/20 ML BTL ONE (07:26)
[2024-04-12] MEDS ORDERED: NS 500 ML IV ONE (07:26)
[2024-04-12] MEDS ORDERED: Heparin Sodium 1000 Units/ML 10ML MDV ONE ×2 (07:26→08:10)
[2024-04-12] MEDS ORDERED: Vasopressin 20 UNITS/ML 1ML Vial ONE (07:30)
[2024-04-12] MEDS ORDERED: FentaNYL Citrate 50 MCG/ML 2 ML Injection ONE (07:37)
[2024-04-12] MEDS ORDERED: Ondansetron HCl 2 MG / ML 2ML Vial ONE (08:53)
--- NOTE | 2024-04-12 09:05 | NUR ---
[facility]. awakens to verbal stimuli, right and left groin sites soft and nontender, no hematoma, no bleeding. o2 placed, biox 90 to 91 %.
[2024-04-12] MEDS ORDERED: Etomidate 2MG / ML 10ML Vial IV ONE (09:46)
[2024-04-12] MEDS ORDERED: Midazolam HCl 1MG / ML 2ML Vial IV ONE (09:46)
[2024-04-12] MEDS ORDERED: Lidocaine HCl 2% 20 MG/ML 5ML SYR IV ONE (09:46)
[2024-04-12] MEDS ORDERED: Glycopyrrolate 0.2 MG/ML 5ML SYR (1MG Total) IV ONE (09:46)
--- NOTE | 2024-04-12 09:49 | NUR ---
RIGHT FEMORAL GROIN SITE SOFT NON-TENDER WITH NO HEMATOMA,NO PULSTILE BLEEDING AND INTACT DRESSING. CALL LIGHT IN REACH.
--- NOTE | 2024-04-12 09:50 | NUR ---
LEFT FEMORAL GROIN SITE SOFT NON-TENDER WITH NO HEMATOMA, NO PULSATILE BLEEDING AND INTACT DRESSING.
--- NOTE | 2024-04-12 10:30 | NUR ---
hob up, patient responds appropriately to questions. right and left groin remain soft and nontender, no hematoma, no bleeding, dressings D&I
--- NOTE | 2024-04-12 11:53 | NUR ---
DR GOMEZ IN ROOM DISCUSSING PLAN OF CARE. BILATERAL SITES REMAIN C/D/I. NADN. CALL LIGHT WITHIN REACH.
--- NOTE | 2024-04-12 12:45 | NUR ---
PT VERBALIZES UNDERSTANDING WRITTEN INSTRUCTIONS. PT DENIES QUESTIONS OR CONCERNS. PT IV DC'D. CATH INTACT. PRESSURE DSG APPLIED. PT DC TO HOME VIA WC BY FRIEND
== END 2024-04-12 12:45 | disposition home or self-care (01) ==
LOC: MHTC 06:35
DX: I73.9 Peripheral vascular disease, unspecified (principal); I13.0 Hypertensive heart and chronic kidney disease with heart failure and stage 1 through stage 4 chronic kidney disease, or unspecified chronic kidney disease; I50.20 Unspecified systolic (congestive) heart failure; N18.32 Chronic kidney disease, stage 3b; I87.2 Venous insufficiency (chronic) (peripheral); F17.210 Nicotine dependence, cigarettes, uncomplicated; Z79.899 Other long term (current) drug therapy
CPT/HCPCS: 36245; 75710; 75716; 76937; C1769; C1887; C1894; J1644; J2001; J2250; J2405; J2704; J3010; J7030; J7050; Q9967

== ENCOUNTER 2024-05-20 06:49 | Day surgery (SDC) | payer OTHER ==
[~2024-05-20] VITALS: Ht 167.6 cm; Wt 62.0 kg
[~2024-05-20 06:49] MED LIST changes: +ALBU90OI INH; +ENTRESTO 24 MG1 EACH PO; +LOTREL 10-40 M1 EACH PO; +METO25ER PO
[2024-05-20] MEDS ORDERED: Heparin Sodium 1000 Units/ML 10ML MDV ONE (06:58)
[2024-05-20] MEDS ORDERED: NS 500 ML IV ONE ×2 (06:58→09:35)
[2024-05-20] MEDS ORDERED: NS 1,000 ML IV ONE (06:59)
[2024-05-20] MEDS ORDERED: propofoL 50 ML IV ONE (07:03)
[2024-05-20] MEDS ORDERED: Lactated Ringer's 1,000 ML IV ONE (07:03)
[2024-05-20] MEDS ORDERED: Lidocaine HCl 2% 20 ML MDV ONE (07:08)
[2024-05-20] MEDS ORDERED: Dexmedetomidine HCL 200 MCG / 2 ML ONE (07:09)
[2024-05-20] MEDS ORDERED: propofoL 100 ML IV ONE (07:10)
[2024-05-20 07:42] VITALS: BP 134/108
[2024-05-20] MEDS ORDERED: Nitroglycerin 2 MG/20 ML BTL ONE (08:02)
[2024-05-20] MEDS ORDERED: Verapamil HCL 2.5 MG/ML 2ML Injection ONE (08:02)
[2024-05-20] MEDS ORDERED: EpiNEPhrine 1 MG/1 ML 1ML Vial ONE (08:31)
--- NOTE | 2024-05-20 09:40 | NUR ---
patient returned to [facility], report given by anasthesiologist. right groin site soft and nontender, no hematoma or bleeding
[2024-05-20] MEDS ORDERED: Phenylephrine HCl 100 MCG/ML-NS 10MLSYR (1MG/10ML) ONE (09:41)
--- NOTE | 2024-05-20 09:45 | NUR ---
o2 placed at 2L/nc for sat of 89
--- NOTE | 2024-05-20 09:54 | NUR ---
200 mcg given by Kamla ALEGRIA for low bp with good results patient in coversation
[2024-05-20] MEDS ORDERED: CLOP75 PO (10:16)
[2024-05-20 11:10] VITALS: BP 108/73
[2024-05-20 11:20] VITALS: BP 117/79
[2024-05-20 11:30] VITALS: BP 94/83
[2024-05-20 11:33] VITALS: BP 126/91
[2024-05-20 11:40] VITALS: BP 124/97
[2024-05-20] MEDS ORDERED: Phenylephrine HCl 100 MCG/ML-NS 10MLSYR (1MG/10ML) IV ONE (11:49)
[2024-05-20] MEDS ORDERED: ePHEDrine Sulfate 50 MG/ML 1ML Injection IV ONE (11:49)
--- NOTE | 2024-05-20 12:00 | NUR ---
PATIENT DRESSED AND SITTING IN CHAIR, PATIENT VERBALIZED UNDERSTANDING OF DISCHARGE INSTRUCTIONS AND PRECAUTIOS, NO FURTHER QUESTIONS, RIGHT GROIN SITE SOFT, NO HEMATOMA, NO BLEEDING, DRESSING D&I. IV SITE DCED WITH CATHETER INTACT. FRIEND MOHSEN HERE TO DRIVE PATIENT HOME. DISCHARGE VOLUNTEER, WITH WHEEL CAHIR TO TRANSPORT PATIENT TO WAITING CAR.
== END 2024-05-20 14:55 | disposition home or self-care (01) ==
LOC: MHTC 06:49
DX: I74.5 Embolism and thrombosis of iliac artery (principal); I74.3 Embolism and thrombosis of arteries of the lower extremities; I73.9 Peripheral vascular disease, unspecified; I87.2 Venous insufficiency (chronic) (peripheral); I13.0 Hypertensive heart and chronic kidney disease with heart failure and stage 1 through stage 4 chronic kidney disease, or unspecified chronic kidney disease; I50.20 Unspecified systolic (congestive) heart failure; N18.30 Chronic kidney disease, stage 3 unspecified; F43.10 Post-traumatic stress disorder, unspecified; F17.210 Nicotine dependence, cigarettes, uncomplicated; Z79.899 Other long term (current) drug therapy
CPT/HCPCS: 37221; 37222; 75625; 75716; 76937; 93005; 93010; C1725; C1760; C1769; C1876; C1887; C1894; J0171; J1644; J2371; J2704; J7030; J7040; J7050; J7120; Q9967

== ENCOUNTER 2024-08-29 12:08 | Inpatient (IN) | payer OTHER ==
[~2024-08-29] VITALS: Ht 167.6 cm; Wt 67.4 kg
[~2024-08-29 12:08] MED LIST changes: +CLOP75 PO; +HYDROCODONE-AC1 EA19 PO; +TRAZ50 PO
[2024-08-29 13:20] LABS: BASOPHILS ABSOLUTE AUTO 0.06 K/mm3 (0.00-0.23); BASOPHILS PERCENT AUTO 1 % (0-2); EOSINOPHILS ABSOLUTE AUTO 0.04 K/mm3 (0.00-0.68); EOSINOPHILS PERCENT AUTO 0 % (0-6); Hematocrit 34.3 % (33.0-51.0); Hemoglobin 10.6 g/dL (11.5-16.0); IMMATURE GRAN ABSOLUTE AUTO 0.04 K/mm3 (0.00-0.10); IMMATURE GRAN PERCENT AUTO 0 % (0-1); LYMPHOCYTES ABSOLUTE AUTO 2.11 K/mm3 (0.84-5.20); LYMPHOCYTES PERCENT AUTO 18 % (21-46); MONOCYTES ABSOLUTE AUTO 0.69 K/mm3 (0.16-1.47); MONOCYTES PERCENT AUTO 6 % (4-13); Mean Corpuscular HGB 31.8 pg (26.0-34.0); Mean Corpuscular HGB Conc 30.9 g/dL (31.5-36.5); Mean Corpuscular Volume 103 fL (80-100); Mean Platelet Volume 9.7 fL (9.1-12.4); NEUTROPHILS ABSOLUTE AUTO 8.62 K/mm3 (1.96-9.15); NEUTROPHILS PERCENT AUTO 75 % (41-73); NRBC ABSOLUTE 0.02 K/mm3 (0.00-0.02); NRBC Auto 0.2 /100 WBC (0.0-0.2); Platelet Count 234 K/mm3 (150-400); RDW Standard Deviation 55.5 fL (35.1-46.3); Red Blood Cell Count 3.33 M/mm3 (3.80-5.20); White Blood Cell Count 11.56 K/mm3 (4.00-11.30)
[2024-08-29 13:29] LABS: Albumin, Blood 2.8 g/dL (3.4-5.0); Albumin/Globulin Ratio 0.6 (0.8-1.8); Bilirubin, Total 0.4 mg/dL (0.1-1.0); Bun/Creatinine Ratio 13.1 (12.0-20.0); Calcium, Blood 8.6 mg/dL (8.5-10.1); Creatinine, Blood 1.45 mg/dL (0.40-1.00); Globulin, Blood 4.5 g/dL (2.2-4.0); Potassium, Blood 4.3 mmol/L (3.5-5.5); Total Protein, Blood 7.3 g/dL (6.4-8.2)
[2024-08-29] MEDS ORDERED: Ondansetron HCl 2 MG / ML 2ML Vial IV ONE (14:50)
[2024-08-29] MEDS ORDERED: Furosemide 10 MG/ML 4ML Vial IV ONE (14:50)
[2024-08-29] MEDS ORDERED: FentaNYL Citrate 50 MCG/ML 2 ML Injection IV ONE (14:50)
[2024-08-29] MEDS ORDERED: Aspirin 325 MG Tab PO ONE (15:25)
[2024-08-29] MEDS ORDERED: FLU VACC TS2024-25(6MOS UP)/PF 45 MCG/0.5 ML SYRINGE IM SCH (15:45)
[2024-08-29] MEDS ORDERED: ChlordiazePOXIDE 25 MG Cap PO PRN (15:50)
[2024-08-29] MEDS ORDERED: Ondansetron HCl 2 MG / ML 2ML Vial IV PRN (15:55)
[2024-08-29] MEDS ORDERED: LORazepam 2 MG/ML 1ML Injection IV PRN (15:55)
[2024-08-29] MEDS ORDERED: Ipratropium/Albuterol SulF 2.5-0.5MG/3 ML Amp INH SCH (15:55)
[2024-08-29] MEDS ORDERED: Metoprolol Tartrate 25 MG Tab PO SCH (16:00)
[2024-08-29] MEDS ORDERED: Thiamine HCl 100 MG Tab PO SCH (16:00)
[2024-08-29] MEDS ORDERED: Folic Acid 1 MG TAB PO SCH (16:00)
[2024-08-29] MEDS ORDERED: Albuterol 2.5 MG/3 ML VIAL INH PRN (17:20)
[2024-08-29] MEDS ORDERED: Metoprolol Tartrate 1 MG/ML 5 ML VIAL IV PRN (17:30)
[2024-08-29] MEDS ORDERED: Furosemide 10 MG/ML 4ML Vial IV SCH (18:00)
[2024-08-29 18:26] VITALS: BP 159/110
[2024-08-29] MEDS ORDERED: ENTRESTO 97 MG1 EAC3 PO (18:26)
[2024-08-29] MEDS ORDERED: METOPROLOL SUCC25 MG PO (18:29)
[2024-08-29] MEDS ORDERED: ROSUVASTATIN CA20 MG PO (18:29)
[2024-08-29] MEDS ORDERED: FUROSEMIDE40 MG PO (18:29)
[2024-08-29 19:33] VITALS: BP 155/109
[2024-08-29] MEDS ORDERED: Nicotine 14 MG PATCH TOP SCH (19:41)
[2024-08-29] MEDS ORDERED: Nitroglycerin 0.4 MG SUBL SL ONE (20:20)
[2024-08-29] MEDS ORDERED: Nitroglycerin 0.4 MG SUBL SL PRN (20:25)
[2024-08-29 21:00] VITALS: BP 175/113
[2024-08-29] MEDS ORDERED: Sacubitril/Valsartan 24 MG-26 MG Tab PO SCH (21:00)
[2024-08-29] MEDS ORDERED: MethylPREDNISolone Sod Succ 125 MG Vial IV SCH (21:00)
[2024-08-29 21:15] VITALS: BP 168/105
--- NOTE | 2024-08-29 21:46 | NUR ---
NURSE NOTE PATIENT IS A+O X4, ABLE TO MAKE NEEDS KNOWN. RESPOTIONS SELF IN BED. DAY SHIFT NURSE WAS ALLOWING PT TO AMBULATE IDEPT TO THE BATHROOM, THIS RN REQUESTED PT TO USE BSC AT NIGHT. PT ENDORSES CHEST PAIN TO THE RIGHT SIDE OF CHEST THAT RADIATES TO THE R ARM AND NECK. PT STATES SHE HAS BEEN DEALING WITH THIS PAIN FOR AROUND 4-5 DAYS AND THAT IS WHAT BROUGHT HER TO THE HOSPITAL. RESTIDENT WAS NOTIFIED OF THIS PAIN VIA TELEPHONE AND ORDERED NITRO FOR THE PT (SEE EMAR). PT SO EXPRESSED BEING ANXIOUS AND WAS MEDICATED PER EMAR FOR THIS. B/P REMAINS ELAVATED THIS EVENING AND STABLE AFTER GIVEN NITRO. CALL LIGHT IS IN REACH, BED IN LOWEST POSTION, WILL CONTINUE TO TREAT.
[2024-08-29 23:50] VITALS: BP 182/122
[2024-08-30] VITALS (12 sets, daily range): BP systolic 103–178; BP diastolic 57–121
[2024-08-30] MEDS ORDERED: HydrALAZINE HCl 20 MG / ML 1ML Vial IV PRN (01:30)
--- NOTE | 2024-08-30 04:26 | NUR ---
SHIFT SUMMARY NOC PT IS A+O X4, ABLE TO MAKE NEEDS KNOWN, REPOSTIONS SELF IN BED. IND IN THE ROOM, ABLE TO ASSIT SELF TO BSC. PT HAD ONE INCONTIENT VOID THIS SHIFT. PT TOOK A SHOWER AND HER BED LIEN WAS CHANGED. CIWA NEGATIVE. PT DID HOWEVER AWAKE AGITATED THIS AM AND STATED, "SHE FORGOT WHERE SHE WAS." SHE WAS EASILY REORIENTATED. PT WAS ABLE TO GET SOME SLEEP THIS SHIFT. ON 2 LITERS NC SATTING AT 94% CURRENTLY. TELE SHOWS SINUS AT A RATE OF 85. PT DENIES CHEST PAIN AT THIS TIME. BED IN LOWEST POSTION, CALL LIGHT IN REACH, WILL CONTINUE TO TREAT AND REPORT TO ONCOMING RN.
[2024-08-30 05:14] LABS: BASOPHILS ABSOLUTE AUTO 0.02 K/mm3 (0.00-0.23); BASOPHILS PERCENT AUTO 0 % (0-2); EOSINOPHILS PERCENT AUTO 0 % (0-6); Hematocrit 34.9 % (33.0-51.0); Hemoglobin 10.9 g/dL (11.5-16.0); Mean Corpuscular HGB 32.2 pg (26.0-34.0); Mean Corpuscular HGB Conc 31.2 g/dL (31.5-36.5); Mean Corpuscular Volume 103 fL (80-100); NRBC ABSOLUTE 0.03 K/mm3 (0.00-0.02); NRBC Auto 0.4 /100 WBC (0.0-0.2); Platelet Count 223 K/mm3 (150-400); RDW Standard Deviation 55.9 fL (35.1-46.3); Red Blood Cell Count 3.39 M/mm3 (3.80-5.20); White Blood Cell Count 7.35 K/mm3 (4.00-11.30)
[2024-08-30 05:17] LABS: International Normalized Ratio 1.18; Prothrombin Time Results 12.5 Sec (9.7-11.5)
[2024-08-30 05:19] LABS: IMMATURE GRAN ABSOLUTE AUTO 0.14 K/mm3 (0.00-0.10); IMMATURE GRAN PERCENT AUTO 2 % (0-1); LYMPHOCYTES ABSOLUTE AUTO 0.51 K/mm3 (0.84-5.20); LYMPHOCYTES PERCENT AUTO 7 % (21-46); MONOCYTES ABSOLUTE AUTO 0.07 K/mm3 (0.16-1.47); MONOCYTES PERCENT AUTO 1 % (4-13); NEUTROPHILS ABSOLUTE AUTO 6.61 K/mm3 (1.96-9.15); NEUTROPHILS PERCENT AUTO 90 % (41-73)
[2024-08-30 05:26] LABS: BAND PERCENT MAN 2 % (0-8); BASOPHILS PERCENT MAN 0 % (0-2); EOSINOPHILS PERCENT MAN 0 % (0-6); LYMPHOCYTES ABSOLUTE MAN 0.36 K/mm3 (0.84-5.20); LYMPHOCYTES PERCENT MAN 5 % (21-46); MONOCYTES PERCENT MAN 0 % (4-13); NEUTROPHILS ABSOLUTE MAN 6.98 K/mm3 (1.96-9.15); SEG NEUTROPHILS PERCENT MAN 93 % (41-73); TOTAL CELLS COUNTED 100
[2024-08-30 05:37] LABS: Albumin/Globulin Ratio 0.7 (0.8-1.8); Bilirubin, Total 0.3 mg/dL (0.1-1.0); Bun/Creatinine Ratio 15.2 (12.0-20.0); Calcium, Blood 8.7 mg/dL (8.5-10.1); Creatinine, Blood 1.65 mg/dL (0.40-1.00); Free Thyroxine 1.06 ng/dL (0.70-1.60); Globulin, Blood 4.6 g/dL (2.2-4.0); Potassium, Blood 4.4 mmol/L (3.5-5.5); Thyroid Stimulating Hormone 0.499 uIU/mL (0.360-4.800); Total Protein, Blood 7.6 g/dL (6.4-8.2)
[2024-08-30] MEDS ORDERED: Nicotine 14 MG PATCH TOP SCH (09:00)
[2024-08-30] MEDS ORDERED: Atorvastatin 40 MG Tab PO SCH (09:00)
[2024-08-30] MEDS ORDERED: Clopidogrel Bisulfate 75 MG Tab PO SCH (09:00)
[2024-08-30] MEDS ORDERED: Enoxaparin 40 MG/0.4 ML SYR SC SCH (09:00)
[2024-08-30] MEDS ORDERED: OxyCODONE HCL 5 MG TAB PO PRN ×2 (09:05→16:10)
[2024-08-30] MEDS ORDERED: Gabapentin 100 MG Cap PO SCH (10:00)
[2024-08-30] MEDS ORDERED: Metolazone 2.5 MG Tab PO SCH (10:00)
--- NOTE | 2024-08-30 15:15 | NUR ---
Patient is lying in bed and alert. Patient has much to say about the deaths of her son, grandson and mother (her mother less than 2 yrs ago). She also shares personal stories about some of the horrible events and people that she has overcome and about her spiritual journey. I encouraged self-care, reinforced helpful attitudes and perspectives and provided therapeutic listening and prayer.
[2024-08-30] MEDS ORDERED: Nystatin 100,000 Unit/ML Susp 5 ML UDC SS SCH (17:00)
--- NOTE | 2024-08-30 17:37 | NUR ---
SHIFT SUMMARY PT A&O X4, ANXIOUS AT TIMES, COOPERATIVE TO CARE. HR IN THE 90'S, SINUS RHYTHM. SBP ELEVATED, MEDICATING PER EMAR. DENIES NUMB/TINGLING. O2 >92% ON RA-2L VIA NC, PT DENIES SOB. SHE HAS A HACKING COUGH BUT DENIES COUGHING ANYTHING UP. PT WITH CHEST/BACK/NECK/SHOULDER/LEG PAIN RATING IT A 10/10, PROVIDER AT BEDSIDE TO DISCUSS. PAIN MEDICATIONS UPDATED BY PROVIDER (SEE EMAR). PT REPORTS NO IMPROVEMENT IN PAIN. TRIED HEATING PAD FOR PAIN RELIEF BUT PT REPORTS MINIMAL RELIEF WITH HEATING PAD. CALL PLACED TO PROVIDER TO UPDATE HER THERE WAS NO IMPROVEMENT IN PAIN AND PT STILL REPORTING 10/10 PAIN, FREQUENCY CHANGE FOR PAIN MEDICATION AND MUSCLE RELAXER PLACED BY PROVIDER. PT VERY ANXIOUS, MEDICATED PER EMAR. PT NOW RELAXING IN BED. WILL MONITOR PT AND REPORT TO MIRROR PAINTER RN.
[2024-08-30 19:35] LABS: Influenza A, PCR NEGATIVE (NEGATIVE); Influenza B, PCR NEGATIVE (NEGATIVE); Resp Syncytial Virus, PCR NEGATIVE (NEGATIVE); SARS-Cov-2 (COVID-19) PCR, MMC NEGATIVE (NEGATIVE)
[2024-08-30] MEDS ORDERED: Methocarbamol 500 MG Tab PO SCH (21:00)
[2024-08-30] MEDS ORDERED: Metoprolol Tartrate 50 MG Tab PO SCH (21:00)
--- NOTE | 2024-08-30 21:04 | NUR ---
ASSUMED CARE OF THIS PT AT 1915. PT IS A+O X4 THIS SHIFT, SHE WAS SITTING UP IN BED. R/O FOR COVID PANEL CAME BACK NEGATIVE. PT WAS TAKEN DOWN TO IMAGING VIA WHEEL CHAIR. PT IS A SBA FOR TRANSFERING. WHEN SHE ARRIVED BACK TO HER ROOM SHE ATE DINNER AND TO SLEEP. BED IN LOWEST POSTION, CALL LIGHT IN REACH.
[2024-08-31 03:40] VITALS: BP 156/106
--- NOTE | 2024-08-31 05:08 | NUR ---
SHIFT SUMMARY PT IS A+O X4, ABLE TO MAKE NEEDS KNOWN, REPOSTIONS SELF IN BED. PT WAS ABLE TO GET SOME SLEEP THIS SHIFT. SHE IS AN IDEPENT TRANSFER TO THE [facility] [place], IF GOING IN THE BATHROOM SHE NEEDS ASSTIANCE WITH LINE MANAGMENT. VSS, SBP IN THE 150s, DENIES CHEST PAIN OR PRESSURE. PT ON 2 LITERS NC SATTING AT 93%. PT WILL HOWEVER DESATURATE IF SHE REMOVES NC. BREATHING EVEN AND UNLABORED. PT DENIES PAIN. REMAINS ON TELE SR W/ PVCs. PT CONTINUES TO GOOD OUTPUT AND HAD A BM THIS MORNING. PT DENIES NEEDS AT THIS TIME, BED IN LOWEST POSTION, CALL LIGHT IN REACH. WILL CONTINUE TO TREAT AND REPORT TO ONCOMING RN.
[2024-08-31 05:34] LABS: BASOPHILS PERCENT AUTO 0 % (0-2); EOSINOPHILS PERCENT AUTO 0 % (0-6); Hematocrit 35.2 % (33.0-51.0); Hemoglobin 10.9 g/dL (11.5-16.0); IMMATURE GRAN ABSOLUTE AUTO 0.05 K/mm3 (0.00-0.10); IMMATURE GRAN PERCENT AUTO 1 % (0-1); LYMPHOCYTES ABSOLUTE AUTO 0.67 K/mm3 (0.84-5.20); LYMPHOCYTES PERCENT AUTO 8 % (21-46); MONOCYTES ABSOLUTE AUTO 0.24 K/mm3 (0.16-1.47); MONOCYTES PERCENT AUTO 3 % (4-13); Mean Corpuscular HGB 31.8 pg (26.0-34.0); Mean Corpuscular Volume 103 fL (80-100); Mean Platelet Volume 9.4 fL (9.1-12.4); NEUTROPHILS PERCENT AUTO 88 % (41-73); NRBC ABSOLUTE 0.03 K/mm3 (0.00-0.02); NRBC Auto 0.4 /100 WBC (0.0-0.2); Platelet Count 222 K/mm3 (150-400); RDW Coefficient Variation 15.1 % (11.7-14.2); RDW Standard Deviation 57.3 fL (35.1-46.3); Red Blood Cell Count 3.43 M/mm3 (3.80-5.20); White Blood Cell Count 7.96 K/mm3 (4.00-11.30)
[2024-08-31 06:09] LABS: Bun/Creatinine Ratio 19.2 (12.0-20.0); Creatinine, Blood 1.77 mg/dL (0.40-1.00); Potassium, Blood 4.4 mmol/L (3.5-5.5)
[2024-08-31 07:43] VITALS: BP 153/101
[2024-08-31] MEDS ORDERED: Gabapentin 300 MG Cap PO SCH (09:00)
[2024-08-31] MEDS ORDERED: Gabapentin 100 MG Cap PO SCH (09:00)
[2024-08-31 11:28] VITALS: BP 163/109
[2024-08-31] MEDS ORDERED: ALLO100 PO (11:55)
[2024-08-31] MEDS ORDERED: CLOP75 PO (11:56)
[2024-08-31] MEDS ORDERED: LOTREL 10-40 M1 EACH PO (12:04)
[2024-08-31] MEDS ORDERED: Crestor40 MG PO (12:08)
[2024-08-31] MEDS ORDERED: ENTRESTO 49 MG1 EACH PO (12:09)
[2024-08-31] MEDS ORDERED: TRELEGY ELLIPT1 EACH INH (12:11)
[2024-08-31] MEDS ORDERED: TRELEGY ELLIPT1 EACH (12:12)
[2024-08-31] MEDS ORDERED: FARXIGA10 MG PO (12:14)
[2024-08-31] MEDS ORDERED: GABA300 PO (12:17)
[2024-08-31 15:02] VITALS: BP 150/109
--- NOTE | 2024-08-31 18:26 | NUR ---
SHIFT SUMMARY PT A&O X4. HR IN THE 80'S, SINUS RHYTHM, ELEVATED BP'S, MEDICATING PER EMAR. SHE DENIES NUMB/TINGLING. PT REPORTS CHEST DISCOMFORT FOR THE LAST WEEK, MEDICATING PER EMAR. SHE REPORTS PAIN IN THE BACK/NECK/SHOULDER/LEGS, MEDICATING PER EMAR. PT DIURESING WELL. O2 >92% ON RA. PT REPORTED EPISODE OF SOB THIS AFTERNOON. FAN PLACED AT BEDSIDE AND INCRESED ANGLE OF HOB. PT REPORTED IMPROVMENT IN BREATHING AFTER. BLOOD CULTURES ORDERED THIS AM, PENDING RESULTS. PT RESTING IN BED AT THIS TIME. SHE DENIES ANY QUESTIONS OR CONCERNS, WILL MONITOR PT AND REPORT TO [facility] TECHNICIAN RN.
[2024-08-31 19:19] VITALS: BP 157/110
[2024-08-31] MEDS ORDERED: Sodium Bicarbonate 650 MG Tab PO SCH (21:00)
--- NOTE | 2024-08-31 21:34 | NUR ---
ASSUMED CARE OF THIS PT AT 1900. PT IS A+O X4, ABLE TO MAKE NEEDS KNOWN, REPOSTIONS SELF IN BED. IDEPENT TO THE BSC FOR VOIDING. VSS, SBP IN THE 150s. PT TITRATED OFF OF OXYGEN TODAY AND IS SATTING AT 92% AND ABOVE ON CONTINUE PULSE OX. BREATHING EVEN AND UNLABORED SITTING UP IN BED HOB ELAVATED. PERRLA. PT REQUESTED PAIN MEDICATION DURING ASSESSMENT, MEDICATED PER EMAR WHEN MEDICATION WAS ABLE TO BE GIVEN PER EMAR ORDERS. BED IN LOWEST POSTION FOR SAFETY. CALL LIGHT IN REACH.
[2024-08-31 23:23] VITALS: BP 141/94
[2024-09-01 03:28] VITALS: BP 148/98
[2024-09-01 04:21] LABS: BASOPHILS ABSOLUTE AUTO 0.01 K/mm3 (0.00-0.23); BASOPHILS PERCENT AUTO 0 % (0-2); EOSINOPHILS ABSOLUTE AUTO 0.01 K/mm3 (0.00-0.68); EOSINOPHILS PERCENT AUTO 0 % (0-6); Hematocrit 32.8 % (33.0-51.0); Hemoglobin 10.2 g/dL (11.5-16.0); IMMATURE GRAN ABSOLUTE AUTO 0.05 K/mm3 (0.00-0.10); IMMATURE GRAN PERCENT AUTO 1 % (0-1); LYMPHOCYTES ABSOLUTE AUTO 1.56 K/mm3 (0.84-5.20); LYMPHOCYTES PERCENT AUTO 15 % (21-46); MONOCYTES ABSOLUTE AUTO 0.88 K/mm3 (0.16-1.47); MONOCYTES PERCENT AUTO 8 % (4-13); Mean Corpuscular HGB 31.4 pg (26.0-34.0); Mean Corpuscular HGB Conc 31.1 g/dL (31.5-36.5); Mean Corpuscular Volume 101 fL (80-100); Mean Platelet Volume 9.3 fL (9.1-12.4); NEUTROPHILS ABSOLUTE AUTO 8.18 K/mm3 (1.96-9.15); NEUTROPHILS PERCENT AUTO 77 % (41-73); NRBC ABSOLUTE 0.02 K/mm3 (0.00-0.02); NRBC Auto 0.2 /100 WBC (0.0-0.2); Platelet Count 230 K/mm3 (150-400); RDW Coefficient Variation 14.8 % (11.7-14.2); RDW Standard Deviation 55.4 fL (35.1-46.3); Red Blood Cell Count 3.25 M/mm3 (3.80-5.20); White Blood Cell Count 10.69 K/mm3 (4.00-11.30)
--- NOTE | 2024-09-01 04:58 | NUR ---
SHIFT SUMMARY PT A+O X4, ABLE TO MAKE NEEDS KNOWN, REPOSTIONS SELF IN BED. PT DID WAKE UP CONFUSED ONCE DURING THE NIGHT BUT WAS EASILY REORIENTATED. CIWAs NEGATIVE DURING SHIFT. PT WAS MEDICATED FOR PAIN X2. VSS. PT ON RA AIR WHILE AWAKE, WHILE SLEEPING REQUIRING 2 LITERS VIA NC. TELE SHOWING SINUS ON THE MONITOR RATE OF 87 AT THIS TIME. PT IS SELF TRANSFERS TO THE BSC AND IS A 1 PERSON SBA TO THE BATHROOM. GOOD URINE OUT PUT, HAD BM THIS MORNING. SNACK PROVIDED THIS AM. PT DENIES NEEDS AT THIS TIME. BED IN LOWEST POSTION FOR SAFETY, CALL LIGHT IN REACH. WILL CONTINUE TO TREAT AND REPORT TO ONCOMING RN.
[2024-09-01 05:12] LABS: Albumin, Blood 2.9 g/dL (3.4-5.0); Albumin/Globulin Ratio 0.7 (0.8-1.8); Bilirubin, Total 0.3 mg/dL (0.1-1.0); Bun/Creatinine Ratio 21.3 (12.0-20.0); Calcium, Blood 8.3 mg/dL (8.5-10.1); Creatinine, Blood 2.11 mg/dL (0.40-1.00); Globulin, Blood 4.2 g/dL (2.2-4.0); Potassium, Blood 4.1 mmol/L (3.5-5.5); Total Protein, Blood 7.1 g/dL (6.4-8.2)
[2024-09-01 07:19] VITALS: BP 155/103
[2024-09-01] MEDS ORDERED: Metoprolol Succinate 50 MG TABCR PO SCH (09:00)
[2024-09-01] MEDS ORDERED: PredniSONE 20 MG Tab PO SCH (09:00)
[2024-09-01] MEDS ORDERED: OxyCODONE HCL 5 MG TAB PO PRN (09:45)
--- NOTE | 2024-09-01 11:34 | NUR ---
PT A&O X4, ANXIOUS AT TIMES. PT MEDICAL STATUS WITH NO TELE. DENIES NUMB/TINGLING, SBP ELEVATED, MEDICATING PER EMAR. O2 >92% ON RA-1L, DENIES SOB AT THIS TIME. PT GETS ANXIOUS AT TIMES AND WOB INCREASES. PT DIURESING WELL. SHE REPORTS PAIN OF THE LEGS/CHEST/ARM/SHOULDERS, MEDICATING PER EMAR. PT RESTING IN BED AT THIS TIME. DENIES QUESTIONS OR CONCERNS. REPORT GIVEN TO NURSES ASSUMING CARE OF PT.
--- NOTE | 2024-09-01 12:16 | NUR ---
REPORT RECIEVED FROM REBEL ALEGRIA AT 1100. THIS RN TO ASSUME CARE.
[2024-09-01 16:23] VITALS: BP 178/101
[2024-09-01 16:47] VITALS: BP 156/91
--- NOTE | 2024-09-01 17:52 | NUR ---
SHIFT SUMMARY/ TRANSFER NOTE REPORT CALLED TO [facility] [facility] RN AT 1740. PT TRANSFERED AT 1751 VIA WHEELCHAIR AND ON RA. PT ABLE TO TRANSFER SEOLF TO AND FROM WHEELCHAIR ON HER OWN, TOLERATED WELL. PERSONAL BELONGINGS IN BAGS AND TRANSFERED WITH PT ALONG WITH PT'S CHART. PT A/OX4 AND COOPERATIVE OF CARE. PT ABLE TO EXPRESS NEEDS AND CALLS APPROPIATE. PT INDEPENDENT IN BED AND ROOM, TOLERATED WELL. PT SEEN BY PHYSICAL THERAPY, THERAPY CLEARED PT AND ENCOURAGED PT TO BE UP MORE. PT HYPERTENSIVE, TREATED PER EMAR. OTHER VSS THROUGHOUT SHIFT. PT REPORTED GENERALIZED PAIN DURING SHIFT, TREATED PER EMAR. NO REPORT OF SOB/DYSPNEA THROUGHOUT SHIFT.
--- NOTE | 2024-09-01 18:44 | NUR ---
TRANSFER NOTE/SHIFT SUMMARY PATIENT TRANSFERRED TO ROOM 311 THIS EVENING FROM PCU FOR CHF EXACERBATION. PATIENT A/OX4, ABLE TO MAKE NEEDS KNOWN. PATIENT IRRITABLE BUT COOPERATIVE WITH CARE AND STATES FRUSTRATION WITH PAIN MANAGEMENT REGIMEN. MD AWARE. PATIENT ON ROOM AIR. INDEPENDENT. NO OTHER CONCERNS AT THIS TIME.
[2024-09-01 20:05] VITALS: BP 127/89
--- NOTE | 2024-09-02 02:49 | NUR ---
0100: Pt awoke with excruciating pain in head, unable to describe, too early to administer oxicodone, gave ativan d/t Pt with anxiety also stating she's been in pain, but this nurse medicated Pt for pain at 2030 and then she slept till just then. Pt A&O x4, VS WNL, O2 2L and nebs as ordered, has not asked for prn nebs. Up ad jojo to BR and does save urine as is on strict I&O's, Will check wt in am.
[2024-09-02 07:32] VITALS: BP 176/106
[2024-09-02] MEDS ORDERED: Acetaminophen 500 MG Tab PO PRN ×2 (07:55→12:00)
[2024-09-02 08:33] LABS: Albumin, Blood 2.9 g/dL (3.4-5.0); Albumin/Globulin Ratio 0.8 (0.8-1.8); Bilirubin, Total 0.4 mg/dL (0.1-1.0); Bun/Creatinine Ratio 28.6 (12.0-20.0); Calcium, Blood 8.5 mg/dL (8.5-10.1); Creatinine, Blood 1.96 mg/dL (0.40-1.00); Globulin, Blood 3.8 g/dL (2.2-4.0); Potassium, Blood 3.6 mmol/L (3.5-5.5); Total Protein, Blood 6.7 g/dL (6.4-8.2)
[2024-09-02] MEDS ORDERED: Enoxaparin 30 MG/0.3 ML SYR SC SCH (09:00)
[2024-09-02] MEDS ORDERED: Allopurinol 100 MG Tab PO SCH (09:00)
[2024-09-02] MEDS ORDERED: Sertraline HCl 100 MG Tab PO SCH (09:00)
[2024-09-02] MEDS ORDERED: Furosemide 40 MG Tab PO SCH ×2 (09:00→13:00)
[2024-09-02] MEDS ORDERED: OxyCODONE HCL 5 MG TAB PO PRN (11:30)
[2024-09-02] MEDS ORDERED: Acetaminophen 500 MG Tab PO ONE (12:00)
[2024-09-02] MEDS ORDERED: DULoxetine HCL 60 MG Capsule DR PO SCH (12:00)
[2024-09-02] MEDS ORDERED: PredniSONE 20 MG Tab PO ONE (13:00)
[2024-09-02] MEDS ORDERED: Methocarbamol 500 MG Tab PO SCH (14:00)
[2024-09-02 15:22] VITALS: BP 177/112
--- NOTE | 2024-09-02 16:08 | NUR ---
NO CHANGES IN PT STATUS TODAY. PT HAD SOME C/O PAIN. SEE EMAR FOR DETAILS AND FREQUECY.
[2024-09-02 16:21] VITALS: BP 163/103
[2024-09-02 20:13] VITALS: BP 191/126
[2024-09-02] MEDS ORDERED: Gabapentin 300 MG Cap PO SCH (21:00)
[2024-09-02 21:53] VITALS: BP 136/86
[2024-09-03 02:33] VITALS: BP 161/96
--- NOTE | 2024-09-03 04:24 | NUR ---
SHIFT SUMMARY ADMITTED FOR CHF EXACERBATION. LIMITED CODE. WE ARE DIURESING HER. PLAN IS FOR DC HOME W/HH. 1500 ML FLUID RESTRICTION. STRICT I&O'S. DAILY WEIGHTS. POWERGLIDE IN RUE. ON RA. PAIN AND ANXIETY MEDICATION GIVEN THIS SHIFT. SHE IS INDEPENDENT IN THE ROOM. ON A CARDIAC DIET. PHYSICAL & OCCUPATIONAL THERAPIES ARE ORDERED. A&O X4, ANXIOUS. ELEVATED BP NOTED AT BEGINNING OF SHIFT, MEDICATED PER EMAR.
[2024-09-03 06:17] LABS: BASOPHILS ABSOLUTE AUTO 0.01 K/mm3 (0.00-0.23); BASOPHILS PERCENT AUTO 0 % (0-2); EOSINOPHILS ABSOLUTE AUTO 0.01 K/mm3 (0.00-0.68); EOSINOPHILS PERCENT AUTO 0 % (0-6); Hematocrit 33.7 % (33.0-51.0); Hemoglobin 10.8 g/dL (11.5-16.0); IMMATURE GRAN ABSOLUTE AUTO 0.06 K/mm3 (0.00-0.10); IMMATURE GRAN PERCENT AUTO 1 % (0-1); LYMPHOCYTES ABSOLUTE AUTO 1.63 K/mm3 (0.84-5.20); LYMPHOCYTES PERCENT AUTO 18 % (21-46); MONOCYTES ABSOLUTE AUTO 1.07 K/mm3 (0.16-1.47); MONOCYTES PERCENT AUTO 12 % (4-13); Mean Corpuscular HGB 31.3 pg (26.0-34.0); Mean Corpuscular Volume 98 fL (80-100); Mean Platelet Volume 9.3 fL (9.1-12.4); NEUTROPHILS ABSOLUTE AUTO 6.29 K/mm3 (1.96-9.15); NEUTROPHILS PERCENT AUTO 69 % (41-73); Platelet Count 289 K/mm3 (150-400); RDW Coefficient Variation 14.4 % (11.7-14.2); RDW Standard Deviation 52.1 fL (35.1-46.3); Red Blood Cell Count 3.45 M/mm3 (3.80-5.20); White Blood Cell Count 9.07 K/mm3 (4.00-11.30)
[2024-09-03 06:40] LABS: Albumin, Blood 2.9 g/dL (3.4-5.0); Albumin/Globulin Ratio 0.7 (0.8-1.8); Bilirubin, Total 0.5 mg/dL (0.1-1.0); Bun/Creatinine Ratio 30.2 (12.0-20.0); Calcium, Blood 8.7 mg/dL (8.5-10.1); Creatinine, Blood 1.89 mg/dL (0.40-1.00); Globulin, Blood 3.9 g/dL (2.2-4.0); Potassium, Blood 3.4 mmol/L (3.5-5.5); Total Protein, Blood 6.8 g/dL (6.4-8.2)
[2024-09-03 07:28] VITALS: BP 148/90
[2024-09-03] MEDS ORDERED: Potassium Chloride 20 MEQ TabCR PO ONE (07:45)
[2024-09-03] MEDS ORDERED: Allopurinol 100 MG Tab PO SCH (09:00)
[2024-09-03] MEDS ORDERED: DULO60 PO (12:09)
[2024-09-03] MEDS ORDERED: NITR.4SL SL (12:09)
[2024-09-03] MEDS ORDERED: Nicoderm Cq1 EAC1 TOP (12:09)
[2024-09-03] MEDS ORDERED: Robaxin750 MG PO (12:09)
[2024-09-03] MEDS ORDERED: OXYC5 PO (12:10)
[2024-09-03] MEDS ORDERED: PRED20 PO (12:10)
[2024-09-03] MEDS ORDERED: NYSTATIN100000 U10 MT (12:10)
[2024-09-03] MEDS ORDERED: POTA10T PO (12:11)
[2024-09-03] MEDS ORDERED: SOAANZ20 M1 PO (12:11)
[2024-09-03] MEDS ORDERED: ENTRESTO 49 MG1 EACH PO (12:11)
[2024-09-03 15:34] VITALS: BP 168/113
--- NOTE | 2024-09-03 16:06 | NUR ---
PATIENT WAS WITNESS THROUGHOUT THE SHIFT AMBULATING STEADILY THROUGH THE ROOM AND INTO THE SWARTZ. WHEN RESPIRATORY WAS IN TO PERFORM HOME O2 EVAL PATIENT ACTING UNSTEADY STATING SHE CANT GO FAR DUE TO NOT HAVING PAIN MEDS. DOC CALLED, WAS INFORMED OF THIS BEHAVIOR AND INSTRUCTED TO SEND HOME. MAINTAINING SATS ON ROOM AIR WITH ACTIVITY.
--- NOTE | 2024-09-03 16:41 | NUR ---
DISCHARGE SUMMARY PATIENT DISCHARGED THIS SHIFT HOME WITH FRIEND TO DRIVE. POWERGLIDE REMOVED WITHOUT COMPLICATION. DISCHARGE PACKET GIVEN AND REVIEWED, QUESTIONS ANSWERED, VERBALIZED UNDERSTANDING. STEADY GAIT WHEN WALKING TO WHEELCHAIR AND AROUND ROOM, STATED "THE TYLENOL FIXED EVERYTHING". HARD SCRIPT FOR OXY SENT IN DISCHARGE PACKET, OTHER MEDS FAXED TO [facility].
--- NOTE | 2024-09-04 13:52 | NUR ---
POST DISCHARGE HOME MEDICATIONS FOUND IN DRAWER. PATIENT CALLED 09/04. ROOMMATE, MOHSEN TO COME GET MEDICATIONS FOR PATIENT. MEDICATIONS PICKED UP BY MOHSEN AT APPROX. 1400 ON 09/04.
== END 2024-09-03 16:25 | disposition home or self-care (01) | DRG 291 ==
LOC: ER 12:08 → PCU 15:43 → MEDS 09-01 18:03
PROVIDERS: Emergency Medicine; ADMIT Internal Medicine
DX: I13.0 Hypertensive heart and chronic kidney disease with heart failure and stage 1 through stage 4 chronic kidney disease, or unspecified chronic kidney disease (principal); I50.23 Acute on chronic systolic (congestive) heart failure; E87.20 Acidosis, unspecified; R18.8 Other ascites; J44.9 Chronic obstructive pulmonary disease, unspecified; Z66 Do not resuscitate; F10.20 Alcohol dependence, uncomplicated; I73.9 Peripheral vascular disease, unspecified; F32.A Depression, unspecified; F17.210 Nicotine dependence, cigarettes, uncomplicated; N18.32 Chronic kidney disease, stage 3b; K70.30 Alcoholic cirrhosis of liver without ascites; M54.6 Pain in thoracic spine; N20.0 Calculus of kidney; R16.0 Hepatomegaly, not elsewhere classified; Z79.899 Other long term (current) drug therapy
CPT/HCPCS: 0241U; 36415; 71046; 72040; 72070; 80048; 80053; 82550; 83880; 84439; 84443; 84484; 85025; 85610; 85651; 86140; 87040; 93005; 93010; 93306; 94640; 94664; 94760; 94761; 94762; 96374; 96375; 97161; 97530; 99285-25; A9270; C1751; J0360; J1650; J1940; J2060; J2405; J2919; J3010; J7512

== ENCOUNTER → 2025-02-20 | Outpatient (CLI) | payer OTHER ==
[~2025-02-20] MED LIST changes: +ALLO100 PO; +DULO60 PO; +ENTRESTO 49 MG1 EACH PO; +ENTRESTO 97 MG1 EAC3 PO; +FARXIGA10 MG PO; +FUROSEMIDE40 MG PO; +GABA300 PO; +METOPROLOL SUCC25 MG PO; +NITR.4SL SL; +NYSTATIN100000 U10 MT; +OXYC5 PO; +POTA10T PO; +PRED20 PO; +ROSUVASTATIN CA20 MG PO; +Robaxin750 MG PO; +SOAANZ20 M1 PO; +TRELEGY ELLIPT1 EACH; +TRELEGY ELLIPT1 EACH INH
[2025-02-20 11:56] LABS: BASOPHILS ABSOLUTE AUTO 0.05 K/mm3 (0.00-0.23); BASOPHILS PERCENT AUTO 0 % (0-2); EOSINOPHILS ABSOLUTE AUTO 0.10 K/mm3 (0.00-0.68); EOSINOPHILS PERCENT AUTO 1 % (0-6); Hematocrit 48.1 % (33.0-51.0); Hemoglobin 15.4 g/dL (11.5-16.0); IMMATURE GRAN ABSOLUTE AUTO 0.05 K/mm3 (0.00-0.10); IMMATURE GRAN PERCENT AUTO 0 % (0-1); LYMPHOCYTES ABSOLUTE AUTO 2.32 K/mm3 (0.84-5.20); LYMPHOCYTES PERCENT AUTO 19 % (21-46); MONOCYTES ABSOLUTE AUTO 0.75 K/mm3 (0.16-1.47); MONOCYTES PERCENT AUTO 6 % (4-13); Mean Corpuscular HGB Conc 32.0 g/dL (31.5-36.5); Mean Corpuscular Volume 100 fL (80-100); NEUTROPHILS ABSOLUTE AUTO 8.68 K/mm3 (1.96-9.15); NEUTROPHILS PERCENT AUTO 73 % (41-73); NRBC ABSOLUTE 0.00 K/mm3 (0.00-0.02); NRBC Auto 0.0 /100 WBC (0.0-0.2); Platelet Count 262 K/mm3 (150-400); RDW Coefficient Variation 13.3 % (11.7-14.2); RDW Standard Deviation 49.2 fL (35.1-46.3)
[2025-02-20 12:06] LABS: Anion Gap 15.0 mmol/L (3-11); Blood Urea Nitrogen 31.0 mg/dL (8-24); CO2, Blood 23.0 mmol/L (21-32); Calcium, Blood 9.4 mg/dL (8.5-10.1); Chloride, Blood 103.0 mmol/L (98-108); Creatinine, Blood 1.9 mg/dL (0.40-1.00); Glucose, Blood 90.0 mg/dL (70-99); Potassium, Blood 4.1 mmol/L (3.5-5.5); Sodium, Blood 137.0 mmol/L (136-145); Uric Acid, Blood 12.3 mg/dL (2.6-6.0)
== END ==
LOC: LAB 11:52 → LAB SHORT 11:52
PROVIDERS: Chiropractor
DX: N18.9 Chronic kidney disease, unspecified (principal)
CPT/HCPCS: 80048; 84550; 85025

== ENCOUNTER 2025-04-07 12:06 | Emergency (ER) | payer OTHER ==
[~2025-04-07] VITALS: Ht 167.6 cm; Wt 60.8 kg
[2025-04-07 14:36] VITALS: BP 234/139
[2025-04-07] MEDS ORDERED: HYDROcodone 5-APAP 325 TAB PO ONE (15:00)
[2025-04-07] MEDS ORDERED: HYDR1TAB94 PO (15:47)
== END 2025-04-07 15:56 | disposition home or self-care (01) ==
LOC: ER 12:06
DX: S89.91XA Unspecified injury of right lower leg, initial encounter (principal); I12.9 Hypertensive chronic kidney disease with stage 1 through stage 4 chronic kidney disease, or unspecified chronic kidney disease; N18.30 Chronic kidney disease, stage 3 unspecified; Z79.899 Other long term (current) drug therapy; J44.9 Chronic obstructive pulmonary disease, unspecified; F17.200 Nicotine dependence, unspecified, uncomplicated; W06.XXXA Fall from bed, initial encounter; Z59.89 Other problems related to housing and economic circumstances
CPT/HCPCS: 73562-RT; 99283-25; A9270

== ENCOUNTER 2025-05-03 09:11 | Inpatient (IN) | payer OTHER ==
[~2025-05-03] VITALS: Ht 165.1 cm; Wt 60.4 kg
[2025-05-03] VITALS (44 sets, daily range): BP systolic 102–167; BP diastolic 65–124
[~2025-05-03 09:11] MED LIST changes: +HYDR1TAB94 PO
[2025-05-03] MEDS ORDERED: Albuterol 2.5 MG/3 ML VIAL INH SCH (09:15)
[2025-05-03] MEDS ORDERED: Magnesium Sulf 2 GM/Water 50ML 50 ML IV ONE (09:15)
[2025-05-03] MEDS ORDERED: Ipratropium Bromide INH 0.02% 0.5 mg/2.5ML Vial INH SCH (09:15)
[2025-05-03 09:48] LABS: BASOPHILS ABSOLUTE AUTO 0.04 K/mm3 (0.00-0.23); BASOPHILS PERCENT AUTO 0 % (0-2); EOSINOPHILS ABSOLUTE AUTO 0.24 K/mm3 (0.00-0.68); EOSINOPHILS PERCENT AUTO 1 % (0-6); Hematocrit 42.6 % (33.0-51.0); Hemoglobin 13.9 g/dL (11.5-16.0); IMMATURE GRAN ABSOLUTE AUTO 0.16 K/mm3 (0.00-0.10); IMMATURE GRAN PERCENT AUTO 1 % (0-1); LYMPHOCYTES ABSOLUTE AUTO 4.62 K/mm3 (0.84-5.20); LYMPHOCYTES PERCENT AUTO 25 % (21-46); MONOCYTES ABSOLUTE AUTO 0.66 K/mm3 (0.16-1.47); MONOCYTES PERCENT AUTO 4 % (4-13); Mean Corpuscular HGB Conc 32.6 g/dL (31.5-36.5); Mean Corpuscular Volume 101 fL (80-100); NEUTROPHILS ABSOLUTE AUTO 12.80 K/mm3 (1.96-9.15); NEUTROPHILS PERCENT AUTO 69 % (41-73); NRBC ABSOLUTE 0.00 K/mm3 (0.00-0.02); NRBC Auto 0.0 /100 WBC (0.0-0.2); Platelet Count 375 K/mm3 (150-400); RDW Coefficient Variation 14.6 % (11.7-14.2); RDW Standard Deviation 53.5 fL (35.1-46.3)
[2025-05-03] MEDS ORDERED: HydrALAZINE HCl 20 MG / ML 1ML Vial IV ONE ×2 (09:55→14:00)
[2025-05-03 10:20] LABS: Alanine Aminotransfer (ALT/SGP 22.0 U/L (12-78); Albumin, Blood 2.6 g/dL (3.4-5.0); Albumin/Globulin Ratio 0.5 (0.8-1.8); Anion Gap 12.0 mmol/L (3-11); Aspartate Aminotrans (AST/SGOT 59.0 U/L (12-37); Bilirubin, Total 0.5 mg/dL (0.1-1.0); Blood Urea Nitrogen 24.0 mg/dL (8-24); CO2, Blood 22.0 mmol/L (21-32); Calcium, Blood 8.3 mg/dL (8.5-10.1); Chloride, Blood 108.0 mmol/L (98-108); Creatinine, Blood 1.72 mg/dL (0.40-1.00); Globulin, Blood 4.9 g/dL (2.2-4.0); Glucose, Blood 222.0 mg/dL (70-99); Magnesium, Blood 2.2 mg/dL (1.6-2.4); Potassium, Blood 4.9 mmol/L (3.5-5.5); Sodium, Blood 137.0 mmol/L (136-145); Total Protein, Blood 7.5 g/dL (6.4-8.2)
[2025-05-03 10:41] LABS: pH Blood Venous 7.19 (7.34-7.37)
[2025-05-03] MEDS ORDERED: Ipratropium/Albuterol SulF 2.5-0.5MG/3 ML Amp INH SCH ×2 (11:50→12:28)
[2025-05-03] MEDS ORDERED: FLU VACC TS2025(65UP)/MF59C/PF 45 MCG/0.5 ML SYRINGE IM SCH (12:00)
[2025-05-03 12:03] LABS: Source, Urine Foley catheter
[2025-05-03 12:19] LABS: Bilirubin, Urine Neg (Neg); Color, Urine Yellow (P-Yellow); Glucose Qualitative, Urine Neg (Neg); Ketones, Urine Neg (Neg); Leukocyte Esterase, Urine 1+ (Neg); Protein, Urine 3+ (Neg); Specific Gravity, Urine 1.020 (1.003-1.022); Urobilinogen, Urine NORM (Normal)
[2025-05-03] MEDS ORDERED: Albuterol 2.5 MG/3 ML VIAL INH PRN (12:30)
[2025-05-03 12:33] LABS: White Blood Cells, Urine 25-50 /hpf (0-5)
[2025-05-03] MEDS ORDERED: CefTRIAXone Sodium 1,000 MG in NS 100 ML IV SCH (14:00)
[2025-05-03] MEDS ORDERED: HydrALAZINE HCl 20 MG / ML 1ML Vial IV PRN (14:00)
[2025-05-03] MEDS ORDERED: Heparin Sodium,Porcine 5,000 UNIT/0.5 ML SDV SC SCH (14:00)
[2025-05-03 14:48] LABS: Prothrombin Time Results 11.2 Sec (9.7-11.5)
[2025-05-03] MEDS ORDERED: Doxycycline Hyclate 100 MG in Dextrose 5% 250 ML IV SCH (17:00)
[2025-05-03 17:38] LABS: Influenza A, PCR NEGATIVE (NEGATIVE); Influenza B, PCR NEGATIVE (NEGATIVE); Resp Syncytial Virus, PCR NEGATIVE (NEGATIVE); SARS-Cov-2 (COVID-19) PCR, MMC NEGATIVE (NEGATIVE)
[2025-05-03 19:26] LABS: Anion Gap 11.0 mmol/L (3-11); Blood Urea Nitrogen 24.0 mg/dL (8-24); CO2, Blood 24.0 mmol/L (21-32); Calcium, Blood 8.0 mg/dL (8.5-10.1); Chloride, Blood 106.0 mmol/L (98-108); Creatinine, Blood 2.07 mg/dL (0.40-1.00); Glucose, Blood 168.0 mg/dL (70-99); Potassium, Blood 3.6 mmol/L (3.5-5.5); Sodium, Blood 137.0 mmol/L (136-145)
--- NOTE | 2025-05-03 19:31 | NUR ---
SHIFT SUMMARY: NEURO: PATIENT REQUIRED SEDATION TO TOLERATE VENT AND PROCEDURES DURING THIS SHIFT. WITH LOW LEVELS OF SEDATION, PATIENT ATTEMPTING TO OPEN EYES TO VERBAL STIMULI IN ADDITION TO MOVING ALL 4 LIMBS. PATIENT WITHDRAWS FROM PAIN WITH HIGHER LEVELS OF SEDATION. PROPOFOL DECREASED TO 40 MCG/KG/MIN. PRECEDEX DECREASED TO 0.2 MCG/KG/HR. RESPIRATORY: PATIENT INTUBATED WITH A 7.5 CM ETT PLACED AT 23.0 AT THE TEETH. PLACEMENT WAS QUESTIONED THIS AFTERNOON. REPEAT CHEST XRAY RESULTS READ TO DR. OMER. NO NEW ORDERS GIVEN AT THAT TIME. AIRATION HEARD THROUGH ALL PITT OF THE LUNGS. SPO2 >94% THROUGHOUT THE SHIFT. RR AT 16. VENT SETTINGS AC/VC 16/400/8/60%. CARDIAC: BLOOD PRESSURES STABLE THROUGHOUT THE SHIFT. INITIALLY UPON ARRIVAL TO THE UNIT, SBP IN THE 100S. BY THE END OF THE SHIFT, SBP IN THE 140S. MAPS >65 THROUGHOUT. HR IN THE 60S. GI/: SANFORD IN PLACE AND DRAINING CLEAR YELLOW URINE. NO FOUL ODOR NOTED. NO BOWEL MOVEMENT. OG TUBE CLAMPED. PSYCHSOCIAL: PATIENT CALM FOR MOST OF THE SHIFT. NOTIFIED NEXT OF KIN/PERSON TO NOTIFY IN THE CHART MOHSEN (ROOMMATE/FRIEND WHO CALLED EMS THIS MORNING).
[2025-05-03] MEDS ORDERED: Cetylpyridinium Chloride 1 EA MISC MT SCH (20:00)
[2025-05-03 20:43] LABS: pH Blood Venous 7.28 (7.34-7.37)
[2025-05-03] MEDS ORDERED: Lactobacil 2-S.Thermo-Bifido 1 1 Cap PO SCH (21:00)
[2025-05-03] MEDS ORDERED: Sacubitril/Valsartan 49 MG/51 MG Tab PO SCH (21:00)
[2025-05-03] MEDS ORDERED: Propofol 10mg/ml 20 ml Vial (Procedural) IV ONE (21:13)
[2025-05-03] MEDS ORDERED: Midazolam HCl 1MG / ML 2ML Vial IM ONE (21:13)
[2025-05-03] MEDS ORDERED: SuccINYLCHOLINE Chloride 200 MG/10 ML 10MLSYR IV ONE (21:13)
[2025-05-03] MEDS ORDERED: Ketamine HCl 100 MG / ML 5ML Vial IM ONE (21:13)
--- NOTE | 2025-05-03 22:27 | NUR ---
ASSUMPTION OF CARE ASSUMED CARE OF PT APPROX 1900. PT IS SEDATED AND INTUBATED WITH PROPOFOL AND PRECEDEX INFUSING VIA POWERGLIDE IN SHELBY -SEE FLOWSHEET. ATTEMPTING TO OPEN EYES TO VOICE, RAISING HANDS UP TOWARDS FACE, ABLE TO NOD HEAD TO QUESTIONS AND ATTEMPTING TO WRITE. HR IS SINUS ON MONITOR WITH RATE IN THE MID 60S, BP STABLE, SYSTOLIC IN THE 140S WITH MAP >65. 7.[address] MEASURING 24CM AT THE TEETH, OGT IN PLACE AT 68 CM AND CLAMPED. VENT SETTINGS AC/VC 16/400/5/45% FI02. SATS >93% LUNG SOUNDS COARSE THROUGHOUT. SANFORD IN PLACE AND DRAINING CLEAR YELLOW URINE TO GRAVITY. CALL LIGHT WITHIN REACH.
[2025-05-04] VITALS (49 sets, daily range): BP systolic 113–178; BP diastolic 72–116
[2025-05-04] MEDS ORDERED: Hydrogen Peroxide 1.5 % Solution MT SCH
[2025-05-04 04:49] LABS: Acinetobacter baumannii DNA Not Detected copy/mL (NOT DETECT); Enterobacter cloacae DNA Not Detected copy/mL (NOT DETECT); Escherichia coli DNA Not Detected copy/mL (NOT DETECT); Haemophilus influenzae DNA Not Detected copy/mL (NOT DETECT); Klebsiella aerogenes DNA Not Detected copy/mL (NOT DETECT); Klebsiella oxytoca DNA Not Detected copy/mL (NOT DETECT); Klebsiella pneumoniae DNA Not Detected copy/mL (NOT DETECT); Moraxella catarrhalis DNA Not Detected copy/mL (NOT DETECT); Proteus sp DNA Not Detected copy/mL (NOT DETECT); Pseudomonas aeruginosa DNA Not Detected copy/mL (NOT DETECT); Serratia marcescens DNA Not Detected copy/mL (NOT DETECT); Staphylococcus aureus DNA Not Detected copy/mL (NOT DETECT); Streptococcus agalactiae DNA Not Detected copy/mL (NOT DETECT); Streptococcus pneumoniae DNA Not Detected copy/mL (NOT DETECT); Streptococcus pyogenes DNA Not Detected copy/mL (NOT DETECT)
[2025-05-04 04:50] LABS: Chlamydia pneumonia Not Detected (NOT DETECT); Human Coronavirus RNA Not Detected (NOT DETECT); Human Metapneumovirus RNA Not Detected (NOT DETECT); Influenza virus A RNA Not Detected (NOT DETECT); Influenza virus B RNA Not Detected (NOT DETECT); Respiratory syncytial Vir RNA Not Detected (NOT DETECT); Rhinovirus+Enterovirus RNA Not Detected (NOT DETECT)
[2025-05-04 05:08] LABS: BASOPHILS ABSOLUTE AUTO 0.01 K/mm3 (0.00-0.23); BASOPHILS PERCENT AUTO 0 % (0-2); EOSINOPHILS ABSOLUTE AUTO 0.00 K/mm3 (0.00-0.68); EOSINOPHILS PERCENT AUTO 0 % (0-6); Hematocrit 36.5 % (33.0-51.0); Hemoglobin 11.9 g/dL (11.5-16.0); IMMATURE GRAN ABSOLUTE AUTO 0.03 K/mm3 (0.00-0.10); IMMATURE GRAN PERCENT AUTO 0 % (0-1); LYMPHOCYTES ABSOLUTE AUTO 0.44 K/mm3 (0.84-5.20); LYMPHOCYTES PERCENT AUTO 6 % (21-46); MONOCYTES ABSOLUTE AUTO 0.11 K/mm3 (0.16-1.47); MONOCYTES PERCENT AUTO 2 % (4-13); Mean Corpuscular HGB Conc 32.6 g/dL (31.5-36.5); Mean Corpuscular Volume 102 fL (80-100); NEUTROPHILS ABSOLUTE AUTO 6.72 K/mm3 (1.96-9.15); NEUTROPHILS PERCENT AUTO 92 % (41-73); NRBC ABSOLUTE 0.00 K/mm3 (0.00-0.02); NRBC Auto 0.0 /100 WBC (0.0-0.2); Platelet Count 222 K/mm3 (150-400); RDW Coefficient Variation 14.3 % (11.7-14.2); RDW Standard Deviation 53.4 fL (35.1-46.3)
[2025-05-04] MEDS ORDERED: Pantoprazole Sodium 40 MG Injection IV SCH (06:00)
--- NOTE | 2025-05-04 06:13 | NUR ---
SHIFT SUMMARY PT REMAINS INTUBATED AND SEDATED, RAAS -3 AT THIS TIME. PROPOFOL AND PRECEDEX INFUSING VIA POWERGLIDE IN SHELBY -SEE FLOWSHEET. PT SEDATION LEVEL WAS LABILE THROUGOUT SHIFT DESPITE CONSISTENT RATES OF SEDATION PROVIDED, REGARDLESS OF STIMULI. PERIODS OF AWAKENING, EYE OPENING AND ABLE TO NOD/SHAKE HEAD TO QUESTIONS. DURING THESE PERIODS WOULD TURN HEAD SIDE TO SIDE AND COUGH OVER ETT, ENCOURAGED TO RELAX AND REORIENTED DURING THESE PERIODS. HR WAS SINUS RHYTHM ON MONITOR WITH RATES IN 60S AND 70S, BP SYSTOLIC IN THE 150S-170S, WITH MAP >65. VENT SETTINGS AC/VC 16/400/8/40% FI02, SATS >93% SANFORD IN PLACE AND DRAINING CLEAR YELLOW URINE TO GRAVITY. NO BM THIS SHIFT.
[2025-05-04 06:49] LABS: Alanine Aminotransfer (ALT/SGP 13.0 U/L (12-78); Albumin, Blood 2.6 g/dL (3.4-5.0); Albumin/Globulin Ratio 0.6 (0.8-1.8); Anion Gap 14.0 mmol/L (3-11); Aspartate Aminotrans (AST/SGOT 14.0 U/L (12-37); Bilirubin, Total 0.3 mg/dL (0.1-1.0); Blood Urea Nitrogen 28.0 mg/dL (8-24); CO2, Blood 21.0 mmol/L (21-32); Calcium, Blood 8.2 mg/dL (8.5-10.1); Chloride, Blood 106.0 mmol/L (98-108); Creatinine, Blood 2.25 mg/dL (0.40-1.00); Globulin, Blood 4.1 g/dL (2.2-4.0); Glucose, Blood 180.0 mg/dL (70-99); Potassium, Blood 4.1 mmol/L (3.5-5.5); Sodium, Blood 137.0 mmol/L (136-145); Total Protein, Blood 6.7 g/dL (6.4-8.2)
[2025-05-04] MEDS ORDERED: Midazolam HCl 1MG / ML 2ML Vial ONE (07:19)
[2025-05-04] MEDS ORDERED: FentaNYL Citrate 50 MCG/ML 2 ML Injection IV PRN (07:25)
[2025-05-04] MEDS ORDERED: Midazolam HCl 1MG / ML 2ML Vial IV PRN (07:25)
[2025-05-04] MEDS ORDERED: Lactobacil 2-S.Thermo-Bifido 1 1 Cap PT SCH (09:00)
[2025-05-04] MEDS ORDERED: Sacubitril/Valsartan 49 MG/51 MG Tab XX SCH (09:00)
[2025-05-04] MEDS ORDERED: NS 250 ML IV PRN (12:45)
--- NOTE | 2025-05-04 14:12 | NUR ---
UPDATE: SPOKE TO PT'S DAUGHTER GEORGINA LEYVA PHONE NUMBER [phone] UPDATE GIVEN. DAUGHTER IS NEXT OF KIN.
--- NOTE | 2025-05-04 16:13 | NUR ---
PALLIATIVE CARE NOTE: CONSULT RECEIVED FOR AD/POLST, END STAGE DISEASE. DISCUSSED IN ICU ROUNDS. PT IS INTUBATED. REVEIWED MEDICAL RECORD. FOUND POLST ON FILE STATING DNR, LIMITED. PT NOTED IN ER PHYSICIAN DOCUMENTATION PT ELECTED TO BE INTUBATED AND SO WAS MADE A FULL CODE. PT REPORTEDLY DOES NOT HAVE FAMILY. CALLED FRIEND MOHSEN LISTED IN CONTACTS. DISCUSSED PT CONCERNS. CLARIFIED IF PT HAS FAMILY. MOHSEN STATED PT HAS A DAUGHTER WHO LIVES IN [place]. MOHSEN STATES PT WOULD BE OK WITH DAUGHTER KNOWING SHE IS IN THE HOSPITAL. SHE GAVE PHONE NUMBER [phone] FOR DAUGHTER GEORGINA LEYVA. CALLED NUMBER BUT IT WAS DISCONNECTED. CALLED MOHSEN BACK AGAIN, SHE STATED SHE KNOWS THE FATHER AND HE IS GOING TO HER HOUSE TO LET HER KNOW HER MOM IS IN THE HOSPITAL. NON DESTRUCTIVE TESTER SEARCHED DAUGHTERS NAME AND FOUND A NUMBER, BUT THAT NUMBER WAS ALSO DISCONNECTED. AWAITING DAUGHTER TO CALL TO DETERMINE GOC. UPDATED PRIMARY RN.
--- NOTE | 2025-05-04 16:42 | NUR ---
UPDATE: SEDATION VACATION AT 1500, PT ABLE TO FOLLOW COMMANDS, COMMUNICATING WITH PAPER AND PEN. RT AT BEDSIDE, PT SWITCHED TO PS VENT MODE. PT HAS VISIBLE TREMORS IN BILATERAL HANDS. PT WRITES THAT SHE TAKE 3-4 DRINKS (RUM) EVERY DAY. LAST DRINK Thursday-. AT BEDSIDE, DECISION MADE TO KEEP HER INTUBATED ONE MORE DAY D/T ETOH WD. SEDATION RESTARTED, PT PLACED BACK TO AC/VC MODE. VERSED GIVEN PRN FOR AGITATION AND VENT COMPLIANCE. CHEST X-RAY OBTAINED TO VERIFY PLACEMENT. ETT MOVED TO 24 AT THE [facility] POST X-RAY PER ORDER.
--- NOTE | 2025-05-04 18:15 | NUR ---
SHIFT SUMMARY: SEE PREVIOUS NOTES. PT IS SEDATED ON PROPOFOL 45MCG/KG/MIN WITH PRN VERSED 2-4MG IV PUSHES. PT AWAKENS AGITATED, PULLING AT LINES, REACHING FOR ETT. FOLLOWING COMMANDS INTERMITINTLY. REMAINS IN BILATERAL SOFT WRIST RESTRAINTS. PT IN ACTIVE ETOH WD, TREMORS NOTED IN BILATERAL UPPER EXTREMITIES, NODS YES TO HEADACHE. PT IN SR WITH HR IN THE 70'S, BP STABLE. PT REMAINS ON VENT WITH SETTINGS AT AC/VC MODE 16/400/8/30% FIO2, GOAL TO MAINTAIN SPO2 ABOVE 92% ACTIVE BT IN ALL QUADRANTS, NO BM THIS SHIFT. SANFORD PATENT, DRAINING TO GRAVITY, CLEAR YELLOW URINE NOTED. PT REPOSITIONED Q2HRS. PLAN OF CARE ONGOING. BED AT LOWEST LEVEL.
[2025-05-04 18:37] LABS: Anion Gap 14.0 mmol/L (3-11); Blood Urea Nitrogen 31.0 mg/dL (8-24); CO2, Blood 23.0 mmol/L (21-32); Calcium, Blood 8.2 mg/dL (8.5-10.1); Chloride, Blood 105.0 mmol/L (98-108); Creatinine, Blood 2.41 mg/dL (0.40-1.00); Glucose, Blood 143.0 mg/dL (70-99); Potassium, Blood 3.7 mmol/L (3.5-5.5); Sodium, Blood 138.0 mmol/L (136-145)
--- NOTE | 2025-05-04 20:14 | NUR ---
ASSUMPTION OF CARE CARE OF PT ASSUMED FOLLOWING BEDSIDE SHIFT REPORT FROM DAY RN. PT INTUBATED AND SEDATED ON 45 OF PROPOFOL. PT GIVEN VERSED AT 1803. CURRENT RASS-2 BUT DAY RN REPORTS QUICK CHANGES IN RASS AND AGITATION. PT IS BEING TREATED FOR ALCOHOL WITHDRAWAL WITH THE VERSED PUSHES, WHICH TODAY REPLACED PRECEDEX IN THE SEDATION MANAGEMENT. CPOT 3- WILL MONITOR AND TREAT PAIN NEEDED. 97.6 F TEMP. SINUS RHYTHM IN 70-80'S WITH BP OF 119/75, MAP OF 89. VENT SETTINGS: ACVC 16/400/8.0/30% WITH SATURATION OF 96%. ETT TUBE 7.5 AND 24.OCM AT [facility]. LUNGS CLEAR. NO DEEP SUCTION YET. OG TUBE IN PLACE AT 68CM AT [facility] AND CLAMPED. BS HYPOACTIVE BUT PRESENT. SANFORD IN PLACE AND PATENT. WILL REVIEW AND CONTINUE PLAN OF CARE.
[2025-05-05] VITALS (25 sets, daily range): BP systolic 129–177; BP diastolic 74–107
[2025-05-05 04:05] LABS: BASOPHILS ABSOLUTE AUTO 0.01 K/mm3 (0.00-0.23); BASOPHILS PERCENT AUTO 0 % (0-2); EOSINOPHILS ABSOLUTE AUTO 0.00 K/mm3 (0.00-0.68); EOSINOPHILS PERCENT AUTO 0 % (0-6); Hematocrit 33.0 % (33.0-51.0); Hemoglobin 10.8 g/dL (11.5-16.0); IMMATURE GRAN ABSOLUTE AUTO 0.05 K/mm3 (0.00-0.10); IMMATURE GRAN PERCENT AUTO 0 % (0-1); LYMPHOCYTES ABSOLUTE AUTO 0.40 K/mm3 (0.84-5.20); LYMPHOCYTES PERCENT AUTO 3 % (21-46); MONOCYTES ABSOLUTE AUTO 0.22 K/mm3 (0.16-1.47); MONOCYTES PERCENT AUTO 2 % (4-13); Mean Corpuscular HGB Conc 32.7 g/dL (31.5-36.5); Mean Corpuscular Volume 101 fL (80-100); NEUTROPHILS ABSOLUTE AUTO 11.51 K/mm3 (1.96-9.15); NEUTROPHILS PERCENT AUTO 94 % (41-73); NRBC ABSOLUTE 0.02 K/mm3 (0.00-0.02); NRBC Auto 0.2 /100 WBC (0.0-0.2); Platelet Count 227 K/mm3 (150-400); RDW Coefficient Variation 14.6 % (11.7-14.2); RDW Standard Deviation 53.2 fL (35.1-46.3)
[2025-05-05 04:38] LABS: Alanine Aminotransfer (ALT/SGP 11.0 U/L (12-78); Albumin, Blood 2.5 g/dL (3.4-5.0); Albumin/Globulin Ratio 0.7 (0.8-1.8); Anion Gap 9.0 mmol/L (3-11); Aspartate Aminotrans (AST/SGOT 11.0 U/L (12-37); Bilirubin, Total 0.4 mg/dL (0.1-1.0); Blood Urea Nitrogen 38.0 mg/dL (8-24); CO2, Blood 25.0 mmol/L (21-32); Calcium, Blood 7.9 mg/dL (8.5-10.1); Chloride, Blood 105.0 mmol/L (98-108); Creatinine, Blood 2.3 mg/dL (0.40-1.00); Globulin, Blood 3.5 g/dL (2.2-4.0); Glucose, Blood 146.0 mg/dL (70-99); Potassium, Blood 3.4 mmol/L (3.5-5.5); Sodium, Blood 136.0 mmol/L (136-145); Total Protein, Blood 6.0 g/dL (6.4-8.2)
[2025-05-05] MEDS ORDERED: Potassium Chl 20MEQ/Water100ML 100 ML IV STA (07:25)
--- NOTE | 2025-05-05 07:26 | NUR ---
SHIFT SUMMARY PT LYING IN BED VENTILATED AND SEDATED ON PROPOFOL 50, RASS -2. AFEBRILE. PT IS IN SOFT BILATERAL WRIST RESTRAINTS. PT CAN MOVED EXTREMITIES WITH STRENGTH. PT DOES SHOW TREMORS WHEN HANDS OUT OF RESTRAINTS. PT ETOH WITHDRAWAL TREATED WITH VERSED ALL SHIFT, WHICH ALSO ACTED A SEDATION ADJUNCT. PT SHOWS SOME TOLERANCE TO SEDATING MEDICATIONS AND WAS GIVEN 4MG X 5 DOSES. PT STAYED IN SINUS RHYTHM WITH STABLE BP. VENT SETTINGS STAYED THE SAME, ACVC 16/400/8.0/30% PRODUCING SATURATIONS > 92%. PT HAD MODERATE CLEAR/YELLOW ORAL SECRETIONS AND SMALL SECRETIONS ON DEEP SUCTION, CLEAR AND THIN. NO BM'S DURING SHIFT. URINE OUTPUT WAS JUST UNDER 1L FOR THE SHIFT. BEDISDE SHIFT REPORT GIVEN TO ONCOMING RN.
[2025-05-05] MEDS ORDERED: Midazolam HCl 1MG / ML 2ML Vial IV PRN (08:50)
[2025-05-05] MEDS ORDERED: Mag Sulfate 1 GM/D5% 100ML 100 ML IV STA (09:08)
[2025-05-05] MEDS ORDERED: Magnesium Hydroxide Conc 10 ML UDC PT PRN (10:55)
[2025-05-05] MEDS ORDERED: Docusate Sodium Liquid 100 MG UDC PT PRN (10:55)
[2025-05-05] MEDS ORDERED: Magnesium Hydroxide Conc 10 ML UDC PO PRN (11:25)
--- NOTE | 2025-05-05 15:17 | NUR ---
PALLIATIVE CARE NOTE: SPOKE TO DAUGHTER GEORGINA OVER THE PHONE AND UPDATED HER ON HER MOMS CONDITION. ALSO DISCUSSED CODE STATUS. INFORMED HER HER MOM HAD A POLST ON FILE STATING DNR/LIMITED AND EXPLAINED WHAT INTERVENTIONS WERE PERFORMED WITH THOSE CHOICES. ALSO INFORMED HER HER MOM CHOSE TO BE INTUBATED IN THE ER, HOWEVER NOTE DOES NOT INDICATE IF DOCTOR SPOKE TO HER ABOUT CHEST COMPRESSIONS. EDUCATED DAUGHTER ON RISKS VS BENEFITS OF CHEST COMPRESSIONS. DAUGHTER HAS DECIDED TO KEPP HER MOM A FULL CODE AT THIS TIME. SHE APPRECIATES THE UPDATES. SHE STATED TO CALL ANYTIME IF ANYTHING CHANGES.
[2025-05-05] MEDS ORDERED: CATAPRES0.1 MG PO (16:03)
[2025-05-05] MEDS ORDERED: LOSA50 PO (16:03)
[2025-05-05 16:13] LABS: Anion Gap 10.0 mmol/L (3-11); Blood Urea Nitrogen 40.0 mg/dL (8-24); CO2, Blood 25.0 mmol/L (21-32); Calcium, Blood 8.2 mg/dL (8.5-10.1); Chloride, Blood 106.0 mmol/L (98-108); Creatinine, Blood 2.43 mg/dL (0.40-1.00); Glucose, Blood 145.0 mg/dL (70-99); Potassium, Blood 3.9 mmol/L (3.5-5.5); Sodium, Blood 137.0 mmol/L (136-145)
--- NOTE | 2025-05-05 16:35 | NUR ---
PALLIATIVE CARE NOTE: SPOKE TO DR. JASON ABOUT DAUGHTERS WISHES TO KEEP PT A FULL CODE. DR. CASTELLANOS GAVE ORDER TO CHANGE CODE STATUS TO FULL CODE. ORDER PLACED. UPDATED PRIMARY RN.
--- NOTE | 2025-05-05 17:55 | NUR ---
ADVANCED OGT: OGT CLAMPED THIS AFTERNOON UNTIL ABLE TO VERIFY PLACEMENT. CHEST XRAY INDICATED SUB OPTIMAL PLACEMENT. PER DR. KRISHNAMURTHY, ADVANCE 5 CM. OGT ADVANCED 5CM. TUBE FEEDING RESUMED.
--- NOTE | 2025-05-05 19:26 | NUR ---
SHIFT SUMMARY: NEURO: PATIENT ABLE TO OPEN EYES AND/OR ATTEMPT TO OPEN EYES TO VERBAL STIMULI. ABLE TO NOD YES/NO TO SOME QUESTIONS. PATIENT ANXIOUS AND AGITATED AT TIMES. MEDICATED PER PRNS FOR PAIN AND ALCOHOL WITHDRAWAL. PATIENT TOLERATED WELL. MOVEMENT NOTED IN ALL 4 EXTREMITIES. PROPOFOL CONTINUES AT 50 MCG/KG/MIN. RESPIRATORY: NO CHANGES TO VENT SETTINGS. REMAINED AT AC/VC 16/400/8/30%. SPO2 >94%. CARDIAC: VITALS STABLE WITH HR IN THE 60S-70S. SBP IN THE 40S-160S. MAPS >65. SINUS RHYTHM THROUGHOUT THE SHIFT. GI/: SANFORD IN PLACE AND DRAINING FREELY. PATIENT RESPONDED WELL TO IV LASIX WITH INCREASE IN OUTPUT AND LIGHTENING OF COLOR. NO FOUL ODOR OR SEDIMENT NOTED. NO BOWEL MOVEMENT TODAY. NEW ORDERS FOR BOWEL CARE. TUBE FEEDING INITIATED PER ORDERS, BUT PLACED ON HOLD TO VERIFY CORRECT PLACEMENT OF OGT. CHEST XRAY TAKEN TO VERIFY PLACEMENT OF OGT. OGT ADVANCED [address] OMER AND TUBE FEEDINGS RESUMED. PSYCHSOCIAL: PATIENT ANXIOUS AT TIMES. RESPONDED WELL TO REASSURANCE AND PRN MEDICATIONS. PATIENT'S DAUGHTER HAS BEEN IN COMMUNICATION WITH PALLIATIVE CARE AND CARE MANAGEMENT.
[2025-05-06] VITALS (92 sets, daily range): BP systolic 112–170; BP diastolic 63–109
[2025-05-06 03:53] LABS: BASOPHILS ABSOLUTE AUTO 0.00 K/mm3 (0.00-0.23); BASOPHILS PERCENT AUTO 0 % (0-2); EOSINOPHILS ABSOLUTE AUTO 0.00 K/mm3 (0.00-0.68); EOSINOPHILS PERCENT AUTO 0 % (0-6); Hematocrit 34.9 % (33.0-51.0); Hemoglobin 11.5 g/dL (11.5-16.0); IMMATURE GRAN ABSOLUTE AUTO 0.06 K/mm3 (0.00-0.10); IMMATURE GRAN PERCENT AUTO 1 % (0-1); LYMPHOCYTES ABSOLUTE AUTO 0.36 K/mm3 (0.84-5.20); LYMPHOCYTES PERCENT AUTO 4 % (21-46); MONOCYTES ABSOLUTE AUTO 0.18 K/mm3 (0.16-1.47); MONOCYTES PERCENT AUTO 2 % (4-13); Mean Corpuscular HGB Conc 33.0 g/dL (31.5-36.5); Mean Corpuscular Volume 101 fL (80-100); NEUTROPHILS ABSOLUTE AUTO 7.98 K/mm3 (1.96-9.15); NEUTROPHILS PERCENT AUTO 93 % (41-73); NRBC ABSOLUTE 0.00 K/mm3 (0.00-0.02); NRBC Auto 0.0 /100 WBC (0.0-0.2); Platelet Count 233 K/mm3 (150-400); RDW Coefficient Variation 14.9 % (11.7-14.2); RDW Standard Deviation 55.2 fL (35.1-46.3)
[2025-05-06 04:18] LABS: Alanine Aminotransfer (ALT/SGP 13.0 U/L (12-78); Albumin, Blood 2.6 g/dL (3.4-5.0); Albumin/Globulin Ratio 0.7 (0.8-1.8); Anion Gap 13.0 mmol/L (3-11); Aspartate Aminotrans (AST/SGOT 13.0 U/L (12-37); Bilirubin, Total 0.3 mg/dL (0.1-1.0); Blood Urea Nitrogen 52.0 mg/dL (8-24); CO2, Blood 22.0 mmol/L (21-32); Calcium, Blood 8.4 mg/dL (8.5-10.1); Chloride, Blood 104.0 mmol/L (98-108); Creatinine, Blood 2.19 mg/dL (0.40-1.00); Globulin, Blood 3.7 g/dL (2.2-4.0); Glucose, Blood 152.0 mg/dL (70-99); Potassium, Blood 4.2 mmol/L (3.5-5.5); Sodium, Blood 135.0 mmol/L (136-145); Total Protein, Blood 6.3 g/dL (6.4-8.2)
--- NOTE | 2025-05-06 05:46 | NUR ---
SHIFT SUMMARY PATIENT WAS RESTLESS AND AGITATED OFF AND ON THROUGHOUT SHIFT. GAVE PRN MEDS PER EMAR FOR COMFORT FOR PATIENT. PATIENT DOES ANSWER YES OR NO QUESTIONS SOMETIMES WITH NODDING OF HEAD. PATIENT GETS MORE AGITATED WHEN MOVING HER. PATIENT LIFTS HEAD AND MOVES IT BACK AND FORTH BUT DOES NOT OPEN EYES. PATIENT IN INTUBATED VENT SETTING 16/400/8/30%. ET TUBE 7.5 24.5 @GUMS. PATIENT HAS OG TUBE @68CM TAPED IN PLACED. HR IN 70'S AND SBP 150'S. TUBE FEEDING VHP RUNNING @ AOEL 40ML WITH 30ML FLUSH Q4 HOURS. PATIENT HAS LEFT UPPER ARM POWER GLIDE. PROPOFOL RUNNING @55MCG. PATIENT HAS SANFORD DRAINING TO GRAVITY . CALL LIGHT WITHIN REACH.
[2025-05-06] MEDS ORDERED: Insulin Human Lispro 100 Units/ML 3ML Syringe SC SCH (12:00)
[2025-05-06] MEDS ORDERED: Heparin Sodium,Porcine 5,000 UNIT/0.5 ML SDV SC SCH (16:00)
--- NOTE | 2025-05-06 18:23 | NUR ---
Patient remains on ICU in need of mechanical ventilation after being found down at home. Dr Rowell plans on keeping patient intubated today due to poor EF on cardioechogram on admission and concern for alcohol withdrawal. Dr Rowell would like to have Precedex infusion started tomorrow morning before change of shift and attempt to wean patient from propofol and mechanical ventilation. Patient appeared comfortable today on a propofol infustion and PRN versed for breakthrough consciousness/agitation. See MAR for full details. Daughter Angel updated via phone by RAJI
[2025-05-06] MEDS ORDERED: Docusate Sodium Liquid 100 MG UDC PT SCH (21:00)
[2025-05-07] VITALS (50 sets, daily range): BP systolic 102–179; BP diastolic 56–107
[2025-05-07 03:18] LABS: BASOPHILS ABSOLUTE AUTO 0.01 K/mm3 (0.00-0.23); BASOPHILS PERCENT AUTO 0 % (0-2); EOSINOPHILS ABSOLUTE AUTO 0.00 K/mm3 (0.00-0.68); EOSINOPHILS PERCENT AUTO 0 % (0-6); Hematocrit 34.2 % (33.0-51.0); Hemoglobin 11.1 g/dL (11.5-16.0); IMMATURE GRAN ABSOLUTE AUTO 0.06 K/mm3 (0.00-0.10); IMMATURE GRAN PERCENT AUTO 1 % (0-1); LYMPHOCYTES ABSOLUTE AUTO 0.99 K/mm3 (0.84-5.20); LYMPHOCYTES PERCENT AUTO 10 % (21-46); MONOCYTES ABSOLUTE AUTO 0.93 K/mm3 (0.16-1.47); MONOCYTES PERCENT AUTO 9 % (4-13); Mean Corpuscular HGB Conc 32.5 g/dL (31.5-36.5); Mean Corpuscular Volume 102 fL (80-100); NEUTROPHILS ABSOLUTE AUTO 8.43 K/mm3 (1.96-9.15); NEUTROPHILS PERCENT AUTO 81 % (41-73); NRBC ABSOLUTE 0.00 K/mm3 (0.00-0.02); NRBC Auto 0.0 /100 WBC (0.0-0.2); Platelet Count 228 K/mm3 (150-400); RDW Coefficient Variation 14.7 % (11.7-14.2); RDW Standard Deviation 55.1 fL (35.1-46.3)
[2025-05-07 03:48] LABS: Alanine Aminotransfer (ALT/SGP 12.0 U/L (12-78); Albumin, Blood 2.5 g/dL (3.4-5.0); Albumin/Globulin Ratio 0.7 (0.8-1.8); Anion Gap 11.0 mmol/L (3-11); Aspartate Aminotrans (AST/SGOT 11.0 U/L (12-37); Bilirubin, Total 0.2 mg/dL (0.1-1.0); Blood Urea Nitrogen 75.0 mg/dL (8-24); CO2, Blood 24.0 mmol/L (21-32); Calcium, Blood 8.3 mg/dL (8.5-10.1); Chloride, Blood 103.0 mmol/L (98-108); Creatinine, Blood 2.13 mg/dL (0.40-1.00); Globulin, Blood 3.4 g/dL (2.2-4.0); Glucose, Blood 108.0 mg/dL (70-99); Phosphorus, Blood 5.8 mg/dL (2.5-4.9); Potassium, Blood 4.2 mmol/L (3.5-5.5); Sodium, Blood 134.0 mmol/L (136-145); Total Protein, Blood 5.9 g/dL (6.4-8.2)
--- NOTE | 2025-05-07 06:10 | NUR ---
SHIFT SUMMARY PATIENT INTUBATED AND SEDATED. PATIENT ALERT TO SELF AND ANSWERED SOME QUESTIONS WITH YES OR NO NODDING OF HEAD. PATIENT AFERIBLE THOUGH SHIFT. PATIENT HR 70'S AND SBP 110-130'S. ET TUBE 7.5 @ 24CM @ GU[facility], VENT SETTING AC/VC 16/400/8/30%. PATIENT HAS OG TUBE @68CMS, TUBE FEEDING VHP @ 40MLS WITH 30MLS FLUSH Q4OURS. PATIENT HAS SANFORD DRAINING TO GRAVITY. PATIENT HAS BILATERAL UPPER ARM POWERGLIDES. PROPOFOL INFUSING @45MCG, PECEDEX INFUSING @0.8. DR CULVER WANTS TO USES PRECEDEX FOR SEDATION AND DECREASE PROPOFOL TO EXTUBATE TODAY IF POSSIBLE. PATIENT HAS BILATERAL SOFT WRIST RESTRAINTS ON. CALL LIGHT WITHIN REACH.
--- NOTE | 2025-05-07 07:14 | NUR ---
CARE ASSUMPTION DURING BEDSIDE SHIFT REPORT W CHRISTIE RN THE PT IS LYING IN BED INTUBATED ON THE VENTILATOR. VENT SETTINGS AC/VC 16/400/8.0 W 30% FIO2. PT'S RR IS 16, MONITOR SHOWING SR 60, BP ELEVATED W SBP >160 WHICH NOC RN REPORTS HAS BEEN INCREASING SEDATION HAS BEEN WEANED. CURRENT RASS IS -3. PT HAS PROPOFOL INFUSING AT 45 MCG/KG/MIN AND PRECEDEX IS AT 0.8 MCG/KG/HR.
[2025-05-07] MEDS ORDERED: LORazepam 2 MG/ML 1ML Injection IV PRN (10:40)
[2025-05-07] MEDS ORDERED: Haloperidol Lactate Inj. 5 MG/ML Injection IV PRN (10:40)
--- NOTE | 2025-05-07 10:45 | NUR ---
UPDATE PT AGITATED DURING WEANING PROCESS W PRECEDEX GTT INFUSING. THIS RN ON THE PHONE W DR. CULVER TO REQUEST EXTUBATION ORDERS WHEN PT WAS ABLE TO GRAB HER ET TUBE AND SELF EXTUBATE. DR. CULVER UPDATED ON THIS EVENT. PT PLACE ON 2L NC AND VSS WNL. DR. CULVER INSTRUCTING TO KEEP PRECEDEX GTT INFUSING. PT VERY DELERIOUS RAMBLING ABOUT VARIOUS TOPIC BUT UNABLE TO KEEP ONE TRAIN OF THOUGHT. RESTRAINTS DC'D FOLLOWING EXTUBATION.
--- NOTE | 2025-05-07 18:22 | NUR ---
DAY SHIFT SUMMARY DURING THE VENTILATOR WEANING PROCESS THIS AM THE PT SELF EXTUBATED. PT WAS PLACED ON 3L NC AND HAS MAINTAINED SPO2 >92%. PT WAS VERY CONFUSED INITIALLY AFTER EXTUBATION BECOMING EMOTIONAL AND VERY AGITATED. PT GIVEN 5 MG HALODOL WELL BEING ON THE PRECEDEX GTT. PT SLEPT FOPR APPROX 2 HOURS AND WHEN SHE AWOKE SHE WAS MUCH CALMER AND LESS CONFUSED. PT'S MENTATION HAS CLEARED T/O THE DAY AND SHE IS NOW USING THE CALL LIGHT TO MAKE HER NEEDS KNOWN. PT PASSED SWALLOW EVAL AND IS TOLERATING PO INTAKE. PT'S MONITOR SHOWING SR 60'S-70'S. BP ELEVATED THIS AM AND SHE RECIEVED HYDRALAZINE X1 W GOOD EFFECT. PT HAS DENIED ANY PAIN OR NAUSEA THIS SHIFT. PT W GOOD UO THIS SHIFT, SEE I&O'S FOR DETAILS. PT'S DAUGHTER AND HER ROOMATE CALLED AND UPDATED ON PT'S CONDITION. PT HAS BEEN OFF OF PRECEDEX MOST OF THE DAY AND IS CALM COOPERATIVE W CARE. WILL REPORT TO ONCOMING RN.
[2025-05-07] MEDS ORDERED: Insulin Human Lispro 100 Units/ML 3ML Syringe SC SCH (21:00)
[2025-05-08] VITALS (15 sets, daily range): BP systolic 133–177; BP diastolic 71–103
[2025-05-08 04:48] LABS: BASOPHILS ABSOLUTE AUTO 0.01 K/mm3 (0.00-0.23); BASOPHILS PERCENT AUTO 0 % (0-2); EOSINOPHILS ABSOLUTE AUTO 0.12 K/mm3 (0.00-0.68); EOSINOPHILS PERCENT AUTO 1 % (0-6); Hematocrit 38.5 % (33.0-51.0); Hemoglobin 12.7 g/dL (11.5-16.0); IMMATURE GRAN ABSOLUTE AUTO 0.05 K/mm3 (0.00-0.10); IMMATURE GRAN PERCENT AUTO 1 % (0-1); LYMPHOCYTES ABSOLUTE AUTO 2.50 K/mm3 (0.84-5.20); LYMPHOCYTES PERCENT AUTO 24 % (21-46); MONOCYTES ABSOLUTE AUTO 0.75 K/mm3 (0.16-1.47); MONOCYTES PERCENT AUTO 7 % (4-13); Mean Corpuscular HGB Conc 33.0 g/dL (31.5-36.5); Mean Corpuscular Volume 99 fL (80-100); NEUTROPHILS ABSOLUTE AUTO 7.02 K/mm3 (1.96-9.15); NEUTROPHILS PERCENT AUTO 67 % (41-73); NRBC ABSOLUTE 0.00 K/mm3 (0.00-0.02); NRBC Auto 0.0 /100 WBC (0.0-0.2); Platelet Count 213 K/mm3 (150-400); RDW Coefficient Variation 14.6 % (11.7-14.2); RDW Standard Deviation 52.6 fL (35.1-46.3)
[2025-05-08 05:12] LABS: Alanine Aminotransfer (ALT/SGP 15.0 U/L (12-78); Albumin, Blood 2.5 g/dL (3.4-5.0); Albumin/Globulin Ratio 0.7 (0.8-1.8); Anion Gap 9.0 mmol/L (3-11); Aspartate Aminotrans (AST/SGOT 16.0 U/L (12-37); Bilirubin, Total 0.4 mg/dL (0.1-1.0); Blood Urea Nitrogen 71.0 mg/dL (8-24); CO2, Blood 26.0 mmol/L (21-32); Calcium, Blood 8.9 mg/dL (8.5-10.1); Chloride, Blood 109.0 mmol/L (98-108); Creatinine, Blood 1.84 mg/dL (0.40-1.00); Globulin, Blood 3.5 g/dL (2.2-4.0); Glucose, Blood 89.0 mg/dL (70-99); Phosphorus, Blood 3.9 mg/dL (2.5-4.9); Potassium, Blood 3.8 mmol/L (3.5-5.5); Sodium, Blood 140.0 mmol/L (136-145); Total Protein, Blood 6.0 g/dL (6.4-8.2)
--- NOTE | 2025-05-08 06:08 | NUR ---
SHIFT SUMMARY PATIENT SLEPT OFF AND ON THROUGH SHIFT. PATIENT A&O X3, AFERIBLE DURING SHIFT. HR IN 70'S AND SBP 160'S. PATIENT ON 2-3L OF OXYGEN VIA NC O2 SATTING IN THE HIGH 90'S. PATIENT HAS SANFORD DRAINING TO GRAVITY. PATIENT HAS LEFT AND RIGHT UPPER ARM POWERGLIDES, BOTH SALINE LOCKED. USES CALL LIGHT SOMETIMES. CALL LIGHT WITHIN REACH.
--- NOTE | 2025-05-08 11:51 | NUR ---
PT UPDATE: PT A/O X4 TODAY, ABLE TO MAKE NEEDS KNOWN. AMBULATED PT WITH FWW AND GAIT BELT TO CHAIR AND SHOWER TODAY. PT TOLERATED WELL 1P ASSIST. REMOVED JUVENAL THIS AM, LAST BM WAS TODAY. CURRENTLY ON ROOM AIR, SATS >95%. DENIES SOB. CALLED AND UPDATED DAUGHTER PER PT REQUEST. PT SITTING UP IN CHAIR, CALL WITHIN REACH.
--- NOTE | 2025-05-08 15:52 | NUR ---
TRANSFER NOTE: GAVE REPORT TO MEDICAL RN TAKING OVER FOR PATIENT. BROUGHT PT UP VIA W/C WITH A 1P ASSIST USING FWW AT APPROX 1545. PT ON ROOM AIR, SATS >95%. DENIES SOB. PT NSR 70-80s, DENIES CHEST PAIN/PRESSURE. PT GOT A SHOWER TODAY, MULTIPLE BMs THROUGHOUT SHIFT. PT WAS ABLE TO WORK WITH HGYSICAL THERAPY AND TOLERATED WELL.
--- NOTE | 2025-05-08 16:26 | NUR ---
THIS RN RECIEVED REPORT FROM ICU NURSE JAVIER AT [id number]
--- NOTE | 2025-05-08 16:26 | NUR ---
ASSUMPTION OF CARE 1520 RECIEVED PATIENT FROM ICU, SHE CAME IN BY WHEELCHAIR TO ROOM 340, ESCORTED BY RAJI HERRERA. SHE CAME WITH A BAG OF BELONGINGS. 2 RN SKIN ASSESSMENT WAS COMPLETED. THE PATIENT HAS TELE, NS AT 80. SHE IS ON ROOM AIR AND TRANSFER WITH 1 PERSON ASSIST, GAITBELT AND FWW.
--- NOTE | 2025-05-08 17:45 | NUR ---
SHIFT SUMMARY PATIENT IS A&OX3, SHE IS ON ROOM AIR. TELE WITH SINUS RHYTHM IN THE 80'S. SHE IS HAVING LEFT KNEE PAIN, FOR WHICH SHE WAS MEDICATED PER EMAR, AND OFFERED ICE AND HEAT PACK. PT EVALUATED HER AND ADVISED 1 PERSON STAND BY ASSIST WITH FWW TO COMMODE. SHE IS CURRENTLY HAVING DINNER, BED IN LOWEST POSITION, CALL LIGHT IS WITHIN REACH.
[2025-05-09 03:21] VITALS: BP 168/91
--- NOTE | 2025-05-09 06:17 | NUR ---
SHIFT SUMMARY: Pt is admitted for ARF and is a full code. Is alert and able to make needs known. ADLs have been 1p. On ISO for ESBL. denies pain or discomfort when asked. Power glide to right and left upper are patent with dressing that is CDI. robert noted sinus tach in the 100s with no events.
[2025-05-09 06:23] LABS: Albumin, Blood 2.7 g/dL (3.4-5.0); Anion Gap 11 mmol/L (3-11); Blood Urea Nitrogen 65 mg/dL (8-24); CO2, Blood 24 mmol/L (21-32); Calcium, Blood 9.3 mg/dL (8.5-10.1); Chloride, Blood 107 mmol/L (98-108); Creatinine, Blood 1.81 mg/dL (0.40-1.00); Glucose, Blood 106 mg/dL (70-99); Phosphorus, Blood 3.9 mg/dL (2.5-4.9); Potassium, Blood 3.8 mmol/L (3.5-5.5); Sodium, Blood 138 mmol/L (136-145)
[2025-05-09 07:46] VITALS: BP 181/99
[2025-05-09 07:47] VITALS: BP 181/99
[2025-05-09 10:16] VITALS: BP 183/110
[2025-05-09] MEDS ORDERED: Acetaminophen325 M1 PO (13:42)
[2025-05-09] MEDS ORDERED: DOCU100 PO (13:42)
[2025-05-09] MEDS ORDERED: AMLO10 PO (13:42)
[2025-05-09] MEDS ORDERED: ENTRESTO 49 MG1 EACH PO (13:43)
[2025-05-09] MEDS ORDERED: VISBIOME 112.51 EACH PO (13:44)
[2025-05-09] MEDS ORDERED: FURO40 PO (13:45)
[2025-05-09] MEDS ORDERED: CIPR250 PO (13:45)
[2025-05-09] MEDS ORDERED: NEBI5 PO (13:47)
[2025-05-09 14:47] VITALS: BP 139/96
--- NOTE | 2025-05-09 18:07 | NUR ---
DISCHARGE 1500 DISCHARGE INSTRUCTIONS REVIEWED WITH PATIENT, DISCHARGE MEDICATIONS REVIEWED WITH PATIENT, MEDICATIONS SENT TO PHARMACY. B/L POWERGLIDES REMOVED WITHOUT COMPLICATIONS, CATHETERS INTACT. PATIENT LEFT IN A STABLE CONDITION, WHEELED OUT BY NURSE AID WITH ALL HER BELONGINGS AND PICKED UP BY FRIEND MOHSEN TO GO HOME.
== END 2025-05-09 14:50 | disposition home health service (06) | DRG 208 ==
LOC: ER 09:11 → ICUE 11:46 → MEDS 05-08 15:40
PROVIDERS: Emergency Medicine; Internal Medicine; Internal Medicine Critical Care Medicine; Student in an Organized Health Care Education/Training Program; ADMIT Student in an Organized Health Care Education/Training Program
PROC: 5A1945Z Respiratory Ventilation, 24-96 Consecutive Hours (ICD-10-PCS; principal; 2025-05-03)
PROC: 0BH17EZ Insertion of Endotracheal Airway into Trachea, Via Natural or Artificial Opening (ICD-10-PCS; 2025-05-03)
PROC: 3E03329 Introduction of Other Anti-infective into Peripheral Vein, Percutaneous Approach (ICD-10-PCS; 2025-05-03)
DX: J15.69 Pneumonia due to other Gram-negative bacteria (principal); J96.01 Acute respiratory failure with hypoxia; J96.02 Acute respiratory failure with hypercapnia; I21.4 Non-ST elevation (NSTEMI) myocardial infarction; I50.23 Acute on chronic systolic (congestive) heart failure; N17.9 Acute kidney failure, unspecified; J44.1 Chronic obstructive pulmonary disease with (acute) exacerbation; J44.0 Chronic obstructive pulmonary disease with (acute) lower respiratory infection; I13.0 Hypertensive heart and chronic kidney disease with heart failure and stage 1 through stage 4 chronic kidney disease, or unspecified chronic kidney disease; E87.20 Acidosis, unspecified; Z16.12 Extended spectrum beta lactamase (ESBL) resistance; N39.0 Urinary tract infection, site not specified; R65.10 Systemic inflammatory response syndrome (SIRS) of non-infectious origin without acute organ dysfunction; Z66 Do not resuscitate; F32.A Depression, unspecified; E66.9 Obesity, unspecified; R73.9 Hyperglycemia, unspecified; K70.30 Alcoholic cirrhosis of liver without ascites; M54.89 Other dorsalgia; E78.5 Hyperlipidemia, unspecified; I73.9 Peripheral vascular disease, unspecified; F25.9 Schizoaffective disorder, unspecified; N18.32 Chronic kidney disease, stage 3b; Z79.02 Long term (current) use of antithrombotics/antiplatelets; Z79.899 Other long term (current) drug therapy; Z98.51 Tubal ligation status; Z87.81 Personal history of (healed) traumatic fracture; Z98.890 Other specified postprocedural states
CPT/HCPCS: 0528U; 31500; 36415; 51702; 71045; 71260; 73562-RT; 76705; 80048; 80053; 80069; 81001; 82140; 82803; 82947; 83605; 83735; 83880; 84100; 84484; 85025; 85379; 85610; 87040; 87070; 87077; 87086; 87186; 87205; 87637; 93005; 93010; 93306; 94002; 94003; 94640; 94644; 94664; 94760; 94762; 96365-59; 96375-59; 97110; 97116; 97161; 97165; 97530; 97535; 99285-25; A9270; C1751; J0330; J0360; J0696; J1630; J1644; J1938; J2185; J2250; J2470; J2704; J2919; J3010; J3411; J3475; J3480; J7050; J7060; Q9967

== ENCOUNTER 2025-06-22 15:04 | Inpatient (IN) | payer OTHER ==
[~2025-06-22] VITALS: Ht 167.6 cm; Wt 58.1 kg
[~2025-06-22 15:04] MED LIST changes: +CATAPRES0.1 MG PO; +CIPR250 PO; +LOSA50 PO; +NEBI5 PO
[2025-06-22 15:38] LABS: BASOPHILS ABSOLUTE AUTO 0.07 K/mm3 (0.00-0.23); BASOPHILS PERCENT AUTO 1 % (0-2); EOSINOPHILS ABSOLUTE AUTO 0.13 K/mm3 (0.00-0.68); EOSINOPHILS PERCENT AUTO 1 % (0-6); Hematocrit 45.1 % (33.0-51.0); Hemoglobin 14.9 g/dL (11.5-16.0); IMMATURE GRAN ABSOLUTE AUTO 0.03 K/mm3 (0.00-0.10); IMMATURE GRAN PERCENT AUTO 0 % (0-1); LYMPHOCYTES ABSOLUTE AUTO 3.48 K/mm3 (0.84-5.20); LYMPHOCYTES PERCENT AUTO 29 % (21-46); MONOCYTES ABSOLUTE AUTO 0.85 K/mm3 (0.16-1.47); MONOCYTES PERCENT AUTO 7 % (4-13); Mean Corpuscular HGB Conc 33.0 g/dL (31.5-36.5); Mean Corpuscular Volume 96 fL (80-100); NEUTROPHILS ABSOLUTE AUTO 7.57 K/mm3 (1.96-9.15); NEUTROPHILS PERCENT AUTO 62 % (41-73); NRBC ABSOLUTE 0.00 K/mm3 (0.00-0.02); NRBC Auto 0.0 /100 WBC (0.0-0.2); Platelet Count 343 K/mm3 (150-400); RDW Coefficient Variation 13.3 % (11.7-14.2); RDW Standard Deviation 47.4 fL (35.1-46.3)
[2025-06-22 16:00] LABS: Alanine Aminotransfer (ALT/SGP 38.0 U/L (12-78); Albumin, Blood 3.3 g/dL (3.4-5.0); Albumin/Globulin Ratio 0.7 (0.8-1.8); Anion Gap 10.0 mmol/L (3-11); Aspartate Aminotrans (AST/SGOT 39.0 U/L (12-37); Bilirubin, Total 0.3 mg/dL (0.1-1.0); Blood Urea Nitrogen 22.0 mg/dL (8-24); CO2, Blood 26.0 mmol/L (21-32); Calcium, Blood 9.1 mg/dL (8.5-10.1); Chloride, Blood 103.0 mmol/L (98-108); Creatinine, Blood 2.11 mg/dL (0.40-1.00); Globulin, Blood 4.9 g/dL (2.2-4.0); Glucose, Blood 130.0 mg/dL (70-99); Potassium, Blood 3.5 mmol/L (3.5-5.5); Sodium, Blood 135.0 mmol/L (136-145); Total Protein, Blood 8.2 g/dL (6.4-8.2)
[2025-06-22] MEDS ORDERED: Ampicillin Sod/Sulbactam Sod 1.5 GM in NS 100 ML IV ONE (18:15)
[2025-06-22 18:42] LABS: C-REACTIVE PROTEIN, EXT RANGE 1.18 mg/dL (0.000-0.300)
[2025-06-22] MEDS ORDERED: Sacubitril/Valsartan 49 MG/51 MG Tab PO SCH (21:00)
[2025-06-22] MEDS ORDERED: OxyCODONE 5 mg/Acetamin 325 mg TABLET PO PRN (21:05)
[2025-06-22] MEDS ORDERED: Ondansetron HCl 2 MG / ML 2ML Vial IV PRN (21:05)
[2025-06-22] MEDS ORDERED: NS 1,000 ML IV SCH (21:15)
[2025-06-22] MEDS ORDERED: FLU VACC TS2025(65UP)/MF59C/PF 45 MCG/0.5 ML SYRINGE IM SCH (21:15)
[2025-06-22 21:25] LABS: Magnesium, Blood 2.0 mg/dL (1.6-2.4)
[2025-06-22 23:14] VITALS: BP 159/101
[2025-06-22] MEDS ORDERED: Morphine Sulfate 4 MG/1 ML Injection IV PRN (23:25)
[2025-06-22] MEDS ORDERED: Labetalol HCL 5 MG/ML 4ML Injection (Single Dose) IV PRN (23:25)
[2025-06-23] MEDS ORDERED: Ampicillin Sod/Sulbactam Sod 3 GM in NS 100 ML IV SCH
[2025-06-23 05:29] LABS: BASOPHILS ABSOLUTE AUTO 0.04 K/mm3 (0.00-0.23); BASOPHILS PERCENT AUTO 0 % (0-2); EOSINOPHILS ABSOLUTE AUTO 0.20 K/mm3 (0.00-0.68); EOSINOPHILS PERCENT AUTO 2 % (0-6); Hematocrit 38.3 % (33.0-51.0); Hemoglobin 12.6 g/dL (11.5-16.0); IMMATURE GRAN ABSOLUTE AUTO 0.02 K/mm3 (0.00-0.10); IMMATURE GRAN PERCENT AUTO 0 % (0-1); LYMPHOCYTES ABSOLUTE AUTO 3.33 K/mm3 (0.84-5.20); LYMPHOCYTES PERCENT AUTO 36 % (21-46); MONOCYTES ABSOLUTE AUTO 0.78 K/mm3 (0.16-1.47); MONOCYTES PERCENT AUTO 8 % (4-13); Mean Corpuscular HGB Conc 32.9 g/dL (31.5-36.5); Mean Corpuscular Volume 96 fL (80-100); NEUTROPHILS ABSOLUTE AUTO 5.02 K/mm3 (1.96-9.15); NEUTROPHILS PERCENT AUTO 54 % (41-73); NRBC ABSOLUTE 0.00 K/mm3 (0.00-0.02); NRBC Auto 0.0 /100 WBC (0.0-0.2); Platelet Count 276 K/mm3 (150-400); RDW Coefficient Variation 13.2 % (11.7-14.2); RDW Standard Deviation 46.6 fL (35.1-46.3)
[2025-06-23 05:55] LABS: Alanine Aminotransfer (ALT/SGP 28.0 U/L (12-78); Albumin, Blood 2.6 g/dL (3.4-5.0); Albumin/Globulin Ratio 0.6 (0.8-1.8); Anion Gap 10.0 mmol/L (3-11); Aspartate Aminotrans (AST/SGOT 29.0 U/L (12-37); Bilirubin, Total 0.3 mg/dL (0.1-1.0); Blood Urea Nitrogen 26.0 mg/dL (8-24); CO2, Blood 25.0 mmol/L (21-32); Calcium, Blood 8.9 mg/dL (8.5-10.1); Chloride, Blood 107.0 mmol/L (98-108); Creatinine, Blood 1.8 mg/dL (0.40-1.00); Globulin, Blood 4.2 g/dL (2.2-4.0); Glucose, Blood 111.0 mg/dL (70-99); Magnesium, Blood 2.0 mg/dL (1.6-2.4); Potassium, Blood 3.0 mmol/L (3.5-5.5); Sodium, Blood 139.0 mmol/L (136-145); Total Protein, Blood 6.8 g/dL (6.4-8.2)
[2025-06-23 06:36] VITALS: BP 169/107
--- NOTE | 2025-06-23 07:17 | NUR ---
ADMIT NOTE/BACK HOE OPERATOR SUMMARY PT A&OX4, VSS. ABLE TO COMMUNICATE NEEDS APPROPRIATELY. PT ORIENTED TO ROOM, CALL LIGHT, AND FALL/SAFETY PRECAUTIONS. PT HAS BEEN ASLEEP ON AND OFF THIS SHIFT. CHEST RISE/RESPIRATIONS NOTED. ON TELE. SR. NOTIFIED OF 12 BEATS OF BIGEMINY THIS AM. DR KASPER NOTIFIED. NO FURTHER ORDERS AT THIS TIMEE. NS INF RUNNING PER EMAR. KOBE IV REMOVED. SHELBY PG PLACED AND REMAINS WNL. PT HAS BEEN NPO SINCE MIDNIGHT FOR POSSIBLE PROCEDURE TODAY TO TREAT HER R INDEX FINGER CELLULITIS. PT NOTED TO BE DAILY SMOKER. OFFERED NICOTINE PATCH, BUT PT REFUSED. BED RAILS UP X 2, BED IN LOWEST POSITION, BED WHEELS LOCKED, PERSONAL BELONGINGS AND CALL LIGHT WITHIN REACH FOR SAFETY. REMAINS ON CONTACT FOR ESBL IN URINE.
[2025-06-23 07:48] VITALS: BP 173/94
[2025-06-23] MEDS ORDERED: Lactobacil 2-S.Thermo-Bifido 1 1 Cap PO SCH ×2 (09:00)
[2025-06-23 11:32] VITALS: BP 151/92
[2025-06-23 15:40] VITALS: BP 170/100
--- NOTE | 2025-06-23 18:32 | NUR ---
SHIFT SUMMARY PATIENT ALERT AND ORIENTED X4, MAKE NEEDS KNOWN. PLEASANT AND COOPERATIVE DURING CARE. PATIENT COMPLAINT IF PAIN, MEDICATED PER EMAR. AWAITING FOR ORTHO EVAL. PATIENT NPO AFTER MIDNIGHT. NO ACUTE CHANGE DURING THIS SHIFT. SELF-REPOSITION IN BED. BED LOCKED AND IN LOWEST POSITION. CALL LIGHT WITHIN REACH.
[2025-06-23 19:40] VITALS: BP 144/81
[2025-06-23 23:55] VITALS: BP 128/89
[2025-06-24 04:31] VITALS: BP 157/86
--- NOTE | 2025-06-24 04:35 | NUR ---
SHIFT SUMMARY; ORTHO. SURGEON STOPPED BY AROUND 1999. TO ASSESS PATIENT'S FINGER. HE BROUGHT A WRIST/HAND SUPPORT. NEW ORDER TO CANCEL SURGERY, REGULAR DIET.TELE SR @ 73 WITH A BBB. CALLED HOSPITALIST LATER FOR NICOTINE PATCH AND TO DC IV FLUIDS. REMAINS IN CONTACT PRECAUTIONS HX OF ESBL IN URINE. STATES SHE DRINKS 1 OZ RUM IN THE MORNING AND THE SAME IN THE EVENING DAILY.
[2025-06-24 06:55] LABS: Hematocrit 44.4 % (33.0-51.0); Hemoglobin 14.5 g/dL (11.5-16.0); Mean Corpuscular HGB Conc 32.7 g/dL (31.5-36.5); Mean Corpuscular Volume 98 fL (80-100); NRBC ABSOLUTE 0.00 K/mm3 (0.00-0.02); NRBC Auto 0.0 /100 WBC (0.0-0.2); Platelet Count 282 K/mm3 (150-400); RDW Coefficient Variation 13.2 % (11.7-14.2); RDW Standard Deviation 47.7 fL (35.1-46.3)
[2025-06-24 07:04] LABS: Anion Gap 10.0 mmol/L (3-11); Blood Urea Nitrogen 23.0 mg/dL (8-24); CO2, Blood 24.0 mmol/L (21-32); Calcium, Blood 9.3 mg/dL (8.5-10.1); Chloride, Blood 105.0 mmol/L (98-108); Creatinine, Blood 1.88 mg/dL (0.40-1.00); Glucose, Blood 109.0 mg/dL (70-99); Potassium, Blood 4.1 mmol/L (3.5-5.5); Sodium, Blood 135.0 mmol/L (136-145)
[2025-06-24 07:35] VITALS: BP 172/106
[2025-06-24 08:30] VITALS: BP 152/103
[2025-06-24 11:52] VITALS: BP 176/89
--- NOTE | 2025-06-24 16:02 | NUR ---
SHIFT SUMMARY PT AOX4, COOPERATIVE, ABLE TO MAKE NEEDS KNOWN. PT IS SBA/IND IN ROOM TO USE BATHROOM. ON 1L O2 CURRENLTY FOR SLEEPING. MAIN C/O OF PAIN IN RIGHT HAND AND RIGHT FOOT, MEDICATING PER EMAR. PT STILL IN CONTACT PRECAUTION ISO FOR ESBL IN URINE. TOLERATING MEDICATIONS. BED IN LOWEST POSITION, CALL LIGHT WITHIN REACH.
[2025-06-24 16:54] VITALS: BP 151/92
[2025-06-24 19:42] VITALS: BP 134/88
[2025-06-25] VITALS (9 sets, daily range): BP systolic 124–180; BP diastolic 74–97
[2025-06-25] MEDS ORDERED: HYDROmorphone HCl/Pf 1MG SYR IV PRN (01:30)
[2025-06-25] MEDS ORDERED: HydrALAZINE HCl 20 MG / ML 1ML Vial IV ONE (01:30)
--- NOTE | 2025-06-25 01:30 | NUR ---
ELEVATED BP, HOSPITALIST NOTIFIED CALLED HOPSITALIST TO NOTIFY PATIENT WITH BP 165/97. PAIN MEDICATIONS AND IV LABETOLOL ADMINISTERED PER OCT. RECHECKED BP AND 180/95. NEW ORDERS RECIEVED FOR HYDRALAZINE AND DILAUDID IV FOR PAIN CONTROL X3 DOSES. WILL ADMINISTER AND CONTINUE TO MONITOR.
[2025-06-25] MEDS ORDERED: HydrALAZINE HCl 20 MG / ML 1ML Vial IV PRN (03:35)
--- NOTE | 2025-06-25 06:23 | NUR ---
SHIFT SUMMARY PATIENT A/OX4, ABLE TO MAKE NEEDS KNOWN. COOPERATIVE WITH STAFF, TALKATIVE. BLOOD PRESSURE ELEVATED THIS SHIFT, HOSPITALIST WAS CALLED AND PRN HYDRALAZINE ORDERED AND EFFECTIVE. PATIENT ALSO REQUESTING INCREASED PAIN MEDICATIONS, DILAUDID WAS ORDERED. PATIENT THEN COMPLAINING OF ITCHINESS R/T DILAUDID AND DOES NOT WISH TO TAKE ANY MORE. NO RASH/HIVES NOTED. PATIENT'S SKIN DRY AND FLAKEY. POWERGLIDE DRESSING CHANGED. REMAINS ON CONTACT PRECAUTIONS FOR ESBL IN URINE. INDEPENDENT IN ROOM. BRACE TO RIGHT WRIST IN PLACE MOST OF SHIFT. PATIENT WAS FOUND "PICKING SCABS OFF" OF HER RIGHT HAND, EDUCATED NOT TO REMOVE ANY SKIN FROM THE EFFECTED AREA. PATIENT WAS NOT RECEPTIVE TO EDCUATION. MULTIPLE PRN PAIN MEDICATIONS ADMINISTERED PER OCT. TELEMETRY IN PLCAE SINUS RHYTHYM WITH BBB. NO OTHER CONCERNS AT THIS TIME.
--- NOTE | 2025-06-25 16:35 | NUR ---
SHIFT SUMMARY PT AOX4, COOPERATIVE, ABLE TO MAKE NEEDS KNOWN. PT IS SBA IN ROOM FOR LINE MANAGEMENT. ON 1L O2 FOR COMFORT. TELE DC'D PER MD ORDER. TOLERATING MEDICAITONS. POSSIBLE PROCEDURE TOMORROW FOR RIGHT INDEX FINGER. NPO AFTER MIDNIGHT IN PLACE. PT STILL IN ISO FOR ESBL IN URINE. NO OTHER ACUTE EVENTS TOOK PLACE THIS SHIFT. BED IN LOWEST POSITION, CALL LIGHT WITHIN REACH.
--- NOTE | 2025-06-25 21:16 | NUR ---
PATIENT REQUESTING SOMETHING TO HELP HER SLEEP. REPORTS TAKING TRAZODONE AT NIGHT; UNSURE OF DOSE. UNABLE TO FIND IN MEDICATION CLAIM Hx. PER LYDIA: TRAZODONE 50MG PO ONCE TONIGHT.
[2025-06-26] VITALS (13 sets, daily range): BP systolic 108–153; BP diastolic 65–93
--- NOTE | 2025-06-26 04:54 | NUR ---
END OF SHIFT SUMMARY: CONTACT PRECAUTIONS FOR ESBL IN URINE. A&Ox4. PLEASANT AND COOPERATIVE WITH CARE. CALLS APPROPRIATELY AND IS ABLE TO ADVOCATE NEEDS EFFECTIVELY. VSS. BREATHING EVEN AND UNLABORED c RA. CONTINENT OF BOWEL AND BLADDER; LBM REPORTED 06/23/25. AMBULATES INDEPENDENTLY c SBA. MEDS WHOLE c FLUIDS. NPO SINCE MIDNIGHT IN ANTICIPATION OF I&D PROCEDURE TODAY. CONTINUES TO HAVE DIFFICULTY MAKING FIST D/T EDEMA IN RIGHT FIRST DIGIT AND HAND. LABS ORDERED FOR THIS MORNING. BED IN LOWEST POSITION, CALL LIGHT WITHIN REACH, ALL NEEDS MET. REPORT TO ONCOMING NURSE.
[2025-06-26 05:08] LABS: BASOPHILS ABSOLUTE AUTO 0.05 K/mm3 (0.00-0.23); BASOPHILS PERCENT AUTO 1 % (0-2); EOSINOPHILS ABSOLUTE AUTO 0.13 K/mm3 (0.00-0.68); EOSINOPHILS PERCENT AUTO 1 % (0-6); Hematocrit 39.5 % (33.0-51.0); Hemoglobin 12.8 g/dL (11.5-16.0); IMMATURE GRAN ABSOLUTE AUTO 0.02 K/mm3 (0.00-0.10); IMMATURE GRAN PERCENT AUTO 0 % (0-1); LYMPHOCYTES ABSOLUTE AUTO 2.31 K/mm3 (0.84-5.20); LYMPHOCYTES PERCENT AUTO 23 % (21-46); MONOCYTES ABSOLUTE AUTO 0.76 K/mm3 (0.16-1.47); MONOCYTES PERCENT AUTO 8 % (4-13); Mean Corpuscular HGB Conc 32.4 g/dL (31.5-36.5); Mean Corpuscular Volume 95 fL (80-100); NEUTROPHILS ABSOLUTE AUTO 6.67 K/mm3 (1.96-9.15); NEUTROPHILS PERCENT AUTO 67 % (41-73); NRBC ABSOLUTE 0.00 K/mm3 (0.00-0.02); NRBC Auto 0.0 /100 WBC (0.0-0.2); Platelet Count 274 K/mm3 (150-400); RDW Coefficient Variation 13.2 % (11.7-14.2); RDW Standard Deviation 46.6 fL (35.1-46.3)
[2025-06-26 05:27] LABS: Anion Gap 11.0 mmol/L (3-11); Blood Urea Nitrogen 24.0 mg/dL (8-24); CO2, Blood 23.0 mmol/L (21-32); Calcium, Blood 9.2 mg/dL (8.5-10.1); Chloride, Blood 103.0 mmol/L (98-108); Creatinine, Blood 2.27 mg/dL (0.40-1.00); Glucose, Blood 103.0 mg/dL (70-99); Potassium, Blood 3.8 mmol/L (3.5-5.5); Sodium, Blood 133.0 mmol/L (136-145)
[2025-06-26] MEDS ORDERED: Bupivacaine HCl 2.5 MG/ML 10ML P/F Injection ONE (12:40)
[2025-06-26] MEDS ORDERED: Lidocaine HCL 1% 10 ML MDV ONE (12:40)
[2025-06-26] MEDS ORDERED: FentaNYL Citrate 50 MCG/ML 2 ML Injection ONE ×2 (13:52→15:06)
[2025-06-26] MEDS ORDERED: Bupivacaine 0.5% HCl 5 MG/ML 30MLVIAL ONE (14:03)
[2025-06-26] MEDS ORDERED: ePHEDrine Sulfate 50 MG/ML 1ML Injection ONE (14:07)
[2025-06-26] MEDS ORDERED: Dexamethasone Sod Phos 10 MG/ML 1ML VIAL ONE (14:10)
[2025-06-26] MEDS ORDERED: Ondansetron HCl 2 MG / ML 2ML Vial ONE (14:10)
[2025-06-26] MEDS ORDERED: Phenylephrine HCl 100 MCG/ML-NS 10MLSYR (1MG/10ML) ONE (14:18)
[2025-06-26] MEDS ORDERED: HYDROmorphone HCl/Pf 1MG SYR IV PRN ×2 (14:25→16:55)
[2025-06-26] MEDS ORDERED: Metoclopramide HCl 5MG / ML 2ML Vial IV PRN (14:25)
[2025-06-26] MEDS ORDERED: FentaNYL Citrate 50 MCG/ML 2 ML Injection IV PRN ×2 (14:25)
[2025-06-26] MEDS ORDERED: Ketorolac Tromethamine 15mg Vial IV PRN (17:45)
[2025-06-26] MEDS ORDERED: DiphenhydrAMINE HCl 50 MG/ML 1ML Vial IV PRN (17:45)
--- NOTE | 2025-06-26 18:14 | NUR ---
SHIFT SUMMARY PT A&OX4, NPO IN AM FOR I&D IN RIGHT HAND THIS AFTERNOON. WHEN PT RETURNED FROM PROCEDURE SHE C/O 8/10 PAIN IN RT HAND, OXY GIVEN WITH LITTLE EFFECT. MD NOTIFIED, ORDER PLACED FOR DILAUDED, GIVEN X1, PT BECAME ITCHY ALL OVER. NOTIFIED, IV BENEDRYL ORDERED AND ADMINISTERED, PT DROWSY AT THIS TIME. CONT PULSE OX IN PLACE PT O2 SAT>90%, CALL LIGHT IN REACH, FREQUENT ROUNDING.
[2025-06-27 04:39] VITALS: BP 136/84
--- NOTE | 2025-06-27 05:27 | NUR ---
SHIFT SUMMARY PATIENT HAS SLEPT T/O LATER PART OF THIS NOC SHIFT. WAFFLE PAD IN PLACE FOR COCCYX, PAIN HAS BEEN WELL CONTROLLED, PATIENT HAS BEEN GETTING UP WITH 1STBA DUE TO PROCEDURE, A&OX4, PLESANT, ABLE TO MAKE NEEDS KNOWN, CALL LIGHT WITHIN REACH, BED AT LOWEST LEVEL, NO DISTRESS NOTED.
[2025-06-27 07:40] VITALS: BP 131/91
[2025-06-27] MEDS ORDERED: NS 250 ML IV PRN (09:40)
[2025-06-27 09:48] VITALS: BP 119/93
[2025-06-27 15:29] LABS: Source, Urine Straight Cath
[2025-06-27 15:41] LABS: Bilirubin, Urine Neg (Neg); Color, Urine Yellow (P-Yellow); Glucose Qualitative, Urine Neg (Neg); Ketones, Urine Neg (Neg); Leukocyte Esterase, Urine Neg (Neg); Protein, Urine 3+ (Neg); Specific Gravity, Urine 1.015 (1.003-1.022); Urobilinogen, Urine NORM (Normal)
[2025-06-27 15:46] VITALS: BP 124/94
[2025-06-27 15:55] LABS: Red Blood Cells, Urine 0-2 /hpf (0-2); White Blood Cells, Urine 0-2 /hpf (0-5)
[2025-06-27] MEDS ORDERED: Nystatin 100,000 Unit/ML Susp 5 ML UDC PO SCH (17:00)
--- NOTE | 2025-06-27 18:24 | NUR ---
SHIFT SUMMARY PT A&OX4, VSS, 2L O2, CONT PULSE OX IN PLACE. I&D TO RT HAND DONE YESTERDAY, PAIN NOW MANAGED WITH PRN OXYCODONE. PT RESTLESS AND FIGITS WITH BANDAGE, EDUCATED ON THE IMPORTANCE OF LEAVING BANDAGE IN PLACE. PT PLEASANT AND COOPERATIVE WITH CARE, ABLE TO MAKE NEEDS KNOWN, CALL LIGHT IN REACH.
[2025-06-27 19:46] VITALS: BP 145/93
[2025-06-27] MEDS ORDERED: Magnesium Hydroxide Conc 10 ML UDC PO ONE (23:30)
[2025-06-27] MEDS ORDERED: Magnesium Hydroxide Conc 10 ML UDC PO PRN (23:35)
[2025-06-28 04:05] VITALS: BP 120/70
--- NOTE | 2025-06-28 04:53 | NUR ---
SHIFT SUMMARY PATIENT HAS BEEN A&OX4, INDEPENDENT IN THE ROOM, HAS HAD SOME HALLUINATIONS OF HOME, SOME PAIN MEDS PER EMAR, SOME ITCHINESS, APPROXIMATELY FIVE DAYS SINCE LAST ETOH DRINK, HOWEVER, NO POINTS OF DISTRESS, BED RAILS UP X 2, BED AT LOWEST LEVEL, ABLE TO MAKE NEEDS KNOWN CALL LIGHT WITHIN REACH
[2025-06-28 07:29] VITALS: BP 130/87
[2025-06-28] MEDS ORDERED: NICO21TP TOP (12:46)
[2025-06-28] MEDS ORDERED: VISBIOME 112.51 EACH PO (12:47)
[2025-06-28] MEDS ORDERED: AMOCLA500 PO (12:58)
[2025-06-28] MEDS ORDERED: TRAZ50 PO (13:01)
--- NOTE | 2025-06-28 15:01 | NUR ---
DISCHARGE PT DISCHARGED TODAY. HOME O2 EVAL COMPLETED PRIOR TO DC. [facility] DELIVERED PORTABLE O2 TO THE PATIENT. MEDS SENT TO [facility]. PT EDUCATED ON NEW MEDS AND THE IMPORTANCE OF FINISHING HER ABX. PT INSTRUCTED ON SIGNS OF INFECTION AND TOLD TO RETURN TO THE ER IF SYMPTOMS WORSEN. PG REMOVED & INTACT. PT STATES SHE UNDERSTANDS AND HAS NO FURTHER QUESTIONS. PT WHEELED OUT BY RN. DRIVEN HOME BY ROOMMATES.
== END 2025-06-28 15:00 | disposition home health service (06) | DRG 513 ==
LOC: ER 15:04 → MEDS 15:05
PROVIDERS: Internal Medicine; Nurse Practitioner Acute Care; Orthopaedic Surgery; Student in an Organized Health Care Education/Training Program; ADMIT Internal Medicine
PROC: 3E03329 Introduction of Other Anti-infective into Peripheral Vein, Percutaneous Approach (ICD-10-PCS; 2025-06-22)
PROC: 3E02340 Introduction of Influenza Vaccine into Muscle, Percutaneous Approach (ICD-10-PCS; 2025-06-22)
PROC: 0LB70ZZ Excision of Right Hand Tendon, Open Approach (ICD-10-PCS; principal; 2025-06-26 14:00)
DX: M65.841 Other synovitis and tenosynovitis, right hand (principal); I13.0 Hypertensive heart and chronic kidney disease with heart failure and stage 1 through stage 4 chronic kidney disease, or unspecified chronic kidney disease; L03.113 Cellulitis of right upper limb; I50.22 Chronic systolic (congestive) heart failure; N18.4 Chronic kidney disease, stage 4 (severe); J44.9 Chronic obstructive pulmonary disease, unspecified; F32.A Depression, unspecified; I73.9 Peripheral vascular disease, unspecified; Z96.632 Presence of left artificial wrist joint; E87.6 Hypokalemia; K70.30 Alcoholic cirrhosis of liver without ascites; F10.10 Alcohol abuse, uncomplicated; F17.210 Nicotine dependence, cigarettes, uncomplicated; Z23 Encounter for immunization; Z98.51 Tubal ligation status; Z79.899 Other long term (current) drug therapy; Z79.2 Long term (current) use of antibiotics; Z87.440 Personal history of urinary (tract) infections; Z86.19 Personal history of other infectious and parasitic diseases; W55.01XA Bitten by cat, initial encounter
CPT/HCPCS: 36415; 73140; 73201; 80048; 80053; 81001; 83735; 85025; 85027; 86140; 86141; 87071; 87075; 87205; 94761; 94762; 96365; 96366; 96375; 96376; 99284-25; A9270; G0378; J0295; J0360; J1100; J1171; J1200; J1885; J2003; J2270; J2371; J2405; J2704; J3010; J7030; J7050; J7120; Q9967